=== PATIENT | female | born 1995 | race Caucasian/White ===

== ENCOUNTER 2017-08-09 13:40 | Emergency (ER) | payer OTHER, SELFPAY ==
[2017-08-09 14:52] VITALS: BMI 32.3
[2017-08-09 14:54] LABS: UTC Influenza A Antigen Negative (Negative)
[2017-08-09 14:55] LABS: UTC Influenza B Antigen Negative (Negative)
--- NOTE | 2017-08-09 14:55 | XR_ITS ---
XR chest 2V INDICATION: Cough COMPARISON: PA and lateral chest 02/06/2015 FINDINGS: The cardiovascular structures are unremarkable. No mediastinal shift or hilar mass is evident. The lungs are well expanded and clear bilaterally. The costophrenic sulci are sharp. No significant bony anomalies are apparent. IMPRESSION: Negative chest.
[2017-08-09 15:42] VITALS: BP 104/56; PULSE 66; RESP 18; TEMP 36.4; O2SAT 96; BMI 20.9
--- NOTE | 2017-08-09 16:06 | HMH.EDUTC ---
[facility] [place] Disposition Clinical Impression: Cough Qualifiers: Weeks of gestation: unspecified Qualified Code(s): Z34.90 - Encounter for supervision of normal , unspecified, unspecified trimester Disposition: Home, Self-Care Condition on Discharge: Good Instructions: DI for Cough -- Adult Additional Instructions: Your CXR was clear * Monitor Temp. FU if fever develops. NO ibuprofen while . * humidifier/vaporizer/hot steamy shower * sleep elevated * What you can take while is limited. Robitussin cough and chest congestion is ok. Do not take anything else unless ok'd by your OB, a provider or the pharmacist. Follow up with primary care immediately for new, worsening or persistant symptoms or if no improvement over the next 3 days. Follow up with OB or ER immediately for abdominal pain, leaking or bleeding from your vagina Time of Disposition: 16:11 Medical Decision Making Vital Signs: 08/09/17 15:42 Temperature 97.5 F L Temperature Source Oral Pulse Rate [Right Brachial] 66 Respiratory Rate 18 Blood Pressure [Right Arm] 104/56 Blood Pressure Mean [Right Arm] 72 Blood Pressure Source [Right Arm] Automatic Cuff Blood Pressure Position [Right Arm] Sitting 02 Sat by Pulse Oximetry 96 Oxygen Delivery Method Room Air - Lab Data Lab results reviewed: Yes: I reviewed the patient's lab results. Lab Results 08/09/17 14:53: Influenza Type A Ag Negative, Influenza Type B Ag Negative Orders (Tests/Meds): ORDERS Category Date Time Status Chest XR 2 view (NOT portable) [XR chest 2V] Stat Exams 08/09/17 14:55 Taken - Radiology Data #1 Image(s): Chest Image Reviewed: Yes I reviewed the patient's radiology image, Yes I reviewed the patient's radiology image w/the ED provider no acute findings per KAELYN Boswell Inquiry Pt receiving controlled substance: No [facility] [place] HPI - General Stated complaint: sore throat Time Seen by Provider: 08/09/17 15:55 Mode of Arrival: Ambulatory Source of Information: Patient Limitations: No Limitations Description of Symptoms (Recalled from Triage Doc. by RN): cough and chest discomfort associated with cough HEENT Symptoms (Recalled from RN notes): No Resp Symptoms (Recalled from RN notes): Yes (cough,soa) Skin Symptoms (Recalled from RN notes): No MS Symptoms (Recalled from RN notes): No Functional Status (Recalled from RN notes): wnl - History of Present Illness Provider Complaint: c/o nonproductive dry cough that is causing chest to hurt. Started last night. Adamant she has a cxr despite just finding out she is . triage nurse had already ordered it and it was done before I saw the patient. She doesn't know how far along she is. Guessing 6-8 weeks. Appt w/ OB schedule for later this month. Denies abdominal pain or vaginal leaking or bleeding. Hasn't taken or tried anything for symptoms. Is taking a vitamin. Denies fever, aches, chills. - Related Data Allergies Allergy/AdvReac Type Severity Reaction Status Date / Time Sulfa (Sulfonamide Allergy Mild Unverified 07/14/17 14:56 Antibiotics) [SULFA (SULFONAMIDE ANTIBIOTICS)] - Worker's Comp Is this a Worker's Comp case?: No H History I have reviewed the patient's past medical history: Yes (denies PMHx) Other Surgeries: No: No Previous Surgery - *Social History Educational Level: Completed High School Smoking Status: Current every day smoker Tobacco Type: cigarettes Alcohol Intake: never - Psychiatric History Expresses thoughts of harming self/others: None Suicide Plan Description: No Plan ROS Obtained: Yes Systems reviewed as appropriate & no additional complaints - Constitutional Constitutional: Denies body ache, Denies chills, Denies fatigue, Denies fever(s), Denies poor appetite - Eyes Eyes: Denies eye discharge - ENT Ears, Nose, Mouth, and Throat: Denies difficulty swallowing, Denies otalgia, Denies nasal conge
--- NOTE | 2017-08-09 16:10 | ED_ITS ---
[facility] [place] Disposition Clinical Impression: Cough Qualifiers: Weeks of gestation: unspecified Qualified Code(s): Z34.90 - Encounter for supervision of normal , unspecified, unspecified trimester Disposition: Home, Self-Care Condition on Discharge: Good Instructions: DI for Cough -- Adult Additional Instructions: Your CXR was clear * Monitor Temp. FU if fever develops. NO ibuprofen while . * humidifier/vaporizer/hot steamy shower * sleep elevated * What you can take while is limited. Robitussin cough and chest congestion is ok. Do not take anything else unless ok'd by your OB, a provider or the pharmacist. Follow up with primary care immediately for new, worsening or persistant symptoms or if no improvement over the next 3 days. Follow up with OB or ER immediately for abdominal pain, leaking or bleeding from your vagina Time of Disposition: 16:11 Medical Decision Making Vital Signs: 08/09/17 15:42 Temperature 97.5 F L Temperature Source Oral Pulse Rate [Right Brachial] 66 Respiratory Rate 18 Blood Pressure [Right Arm] 104/56 Blood Pressure Mean [Right Arm] 72 Blood Pressure Source [Right Arm] Automatic Cuff Blood Pressure Position [Right Arm] Sitting 02 Sat by Pulse Oximetry 96 Oxygen Delivery Method Room Air - Lab Data Lab results reviewed: Yes: I reviewed the patient's lab results. Lab Results 08/09/17 14:53: Influenza Type A Ag Negative, Influenza Type B Ag Negative Orders (Tests/Meds): ORDERS Category Date Time Status Chest XR 2 view (NOT portable) [XR chest 2V] Stat Exams 08/09/17 14:55 Taken - Radiology Data #1 Image(s): Chest Image Reviewed: Yes I reviewed the patient's radiology image, Yes I reviewed the patient's radiology image w/the ED provider no acute findings per KAELYN Boswell Inquiry Pt receiving controlled substance: No [facility] [place] HPI - General Stated complaint: sore throat Time Seen by Provider: 08/09/17 15:55 Mode of Arrival: Ambulatory Source of Information: Patient Limitations: No Limitations Description of Symptoms (Recalled from Triage Doc. by RN): cough and chest discomfort associated with cough HEENT Symptoms (Recalled from RN notes): No Resp Symptoms (Recalled from RN notes): Yes (cough,soa) Skin Symptoms (Recalled from RN notes): No MS Symptoms (Recalled from RN notes): No Functional Status (Recalled from RN notes): wnl - History of Present Illness Provider Complaint: c/o nonproductive dry cough that is causing chest to hurt. Started last night. Adamant she has a cxr despite just finding out she is . triage nurse had already ordered it and it was done before I saw the patient. She doesn't know how far along she is. Guessing 6-8 weeks. Appt w/ OB schedule for later this month. Denies abdominal pain or vaginal leaking or bleeding. Hasn't taken or tried anything for symptoms. Is taking a vitamin. Denies fever, aches, chills. - Related Data Allergies Allergy/AdvReac Type Severity Reaction Status Date / Time Sulfa (Sulfonamide Allergy Mild Unverified 07/14/17 14:56 Antibiotics) [SULFA (SULFONAMIDE ANTIBIOTICS)] - Worker's Comp Is this a Worker's Comp case?: No H History I have reviewed the patient's past medical history: Yes (denies PMHx) Other Surgeries: No: No Previous Surg
[2017-08-09 16:17] VITALS: BP 104/56; PULSE 66; RESP 18; TEMP 36.4; O2SAT 96
== END 2017-08-09 16:19 | disposition home or self-care (01) ==
PROVIDERS: Emergency Provider Nurse Practitioner Family; Family Provider Family Medicine
DX: R05 Cough (principal); Z33.1 Pregnant state, incidental; Z88.2 Allergy status to sulfonamides
CPT/HCPCS: 71046; 87804; 99202; 99282

== ENCOUNTER → 2017-08-19 10:29 | Outpatient (CLI) | payer OTHER, SELFPAY ==
[2017-08-19 11:27] LABS: Basophils % 0.2 % (0.1-2.0); Eosinophils # 0.1 K/mm3 (0.0-0.4); Eosinophils % 1.2 % (0.1-12.0); Hematocrit 36.6 % (37.0-47.0); Hemoglobin 12.9 g/dL (12.2-16.2); Lymphocytes # 1.4 K/mm3 (0.7-4.5); Lymphocytes % 15.9 K/mm3 (10-50); Mean Corpuscular HGB Conc 35.2 g/dL (31.8-35.4); Mean Corpuscular Hemoglobin 32.7 pg (27.0-31.2); Mean Corpuscular Volume 92.7 fl (81-99); Mean Platelet Volume 7.5 fl (7.4-10.4); Monocytes # 0.6 K/mm3 (0.1-1.0); Monocytes % 7.1 % (1.7-9.3); Neutrophils # 6.6 K/mm3 (1.8-7.8); Neutrophils % 75.5 % (37.0-80.0); Platelet Count 403 K/mm3 (142-424); Red Blood Count 3.94 M/mm3 (4.20-5.40); Red Cell Distribution Width 11.8 % (11.5-17.5); White Blood Count 8.8 K/mm3 (4.8-10.8)
[2017-08-20 08:52] LABS: HIV Screen 4th Generation wRfx Non Reactive (Non Reactive)
[2017-08-20 09:19] LABS: Rapid Plasma Reagin Ab Titer Non Reactive (NonRea<1:1)
[2017-08-21 18:20] LABS: Hepatitis B Surface Antigen Negative (Negative); Hepatitis C Antibody 0.2 s/co ratio (0.0-0.9)
== END ==
PROVIDERS: PCP Family Medicine; Visit Provider Nurse Practitioner Obstetrics & Gynecology
DX: Z3A.01 Less than 8 weeks gestation of pregnancy (principal)
CPT/HCPCS: 36415; 85025; 86592; 86703; 86762; 86850; 87340; 87380; G0432

== ENCOUNTER → 2017-08-26 12:42 | Outpatient (CLI) | payer OTHER, SELFPAY ==
--- NOTE | 2017-08-26 12:44 | US_ITS ---
US OB transvaginal HISTORY: Evaluate for gestational age and viability ITS.REASON: [id number] FOR DATES ORDERING PHYSICIAN: Ben Pacheco MD PATIENT AGE: 22 years COMPARISON: None FINDINGS: An intrauterine gestational sac is present with a pole with a crown-rump length of 1.67cm correlating to gestational age of 8w1d. heart tones are present with an FHR of 144 bpm's. Yolk sac is noted. The amnion and chorion have not yet fused. Adnexa: 1.8 cm right ovarian cyst likely corpus luteum. Unremarkable left ovary. IMPRESSION: Live intrauterine gestation at 8 weeks 1 day with an estimated due date of 04/06/2018
== END ==
PROVIDERS: Family Provider Family Medicine; PCP Family Medicine; Visit Provider Nurse Practitioner Obstetrics & Gynecology
DX: O26.841 Uterine size-date discrepancy, first trimester (principal)
CPT/HCPCS: 76830

== ENCOUNTER 2017-10-09 14:04 | Emergency (ER) | payer OTHER, SELFPAY ==
--- NOTE | 2017-10-09 14:22 | PC.NURSE ---
Triage nurse alerted me to patient's CC. Went and spoke to patient. Lower abdominal pain starting last night. has progressed. 14 weeks w/o vaginal leaking or bleeding. No fever or V/D. Discussed possible differentials and [facility] guidelines. Pt agreeable to transfer to ER. Report called to Bushra RN working in ER. Assisted to ER by Jesica into bed 11.
[2017-10-09 14:42] VITALS: BP 126/49; PULSE 95; RESP 20; TEMP 36.8; O2SAT 98; BMI 22.2
--- NOTE | 2017-10-09 14:56 | HMH.EDPREG ---
ED Disposition Clinical Impression: Abdominal pain, Abdominal pain affecting Disposition: Home, Self-Care Condition on Discharge: Good Instructions: DI for Acute Abdomen Referrals: Ben Pacheco MD [Primary Care Provider] - - Critical Care Critical Care Time: No Attestation: On 10/09/17, the high probability of a clinically significant, sudden or life threatening deterioration of the following system(s) required my full and direct attention, intervention and personal management. The time I documented below is in addition to time spent performing reported procedures but includes the following listed in this critical care notation. Medical Decision Making - Vega Inquiry Pt receiving controlled substance: No Vega was queried for this patient: No Vital Signs: 10/09/17 14:42 Temperature 98.2 F Temperature Source Oral Pulse Rate [Right Brachial] 95 H Respiratory Rate 20 Blood Pressure [Right Arm] 126/49 Blood Pressure Mean [Right Arm] 74 Blood Pressure Source [Right Arm] Automatic Cuff Blood Pressure Position [Right Arm] Sitting 02 Sat by Pulse Oximetry 98 Oxygen Delivery Method Room Air - Lab Data Lab Results 10/09/17 15:00: Urine Color Yellow, Urine Appearance Sl cloudy, Urine pH 7.5, Ur Specific [place] 1.015, Urine Protein Negative, Urine Glucose (UA) Negative, Urine Ketones Negative, Urine Blood Negative, Urine Nitrate Negative, Urine Bilirubin Negative, Urine Urobilinogen 0.2, Ur Leukocyte Esterase Trace, Urine RBC None, Urine WBC Occasional, Ur Squamous Epith Cells Occasional, Urine Bacteria Trace Orders (Tests/Meds): ORDERS Category Date Time Status US OB >= 14 weeks Fetus Stat Ultrasound 10/09/17 14:59 Taken HPI - General Chief complaint: Abdominal Pain Stated complaint: approx 14 weeks ,abd pain Time Seen by Provider: 10/09/17 14:30 Mode of Arrival: Ambulatory Limitations: No Limitations Description of Symptoms (Recalled from ER Triage Doc. by RN): sharp pains and cramps in lower abdomen that started last night - History of Present Illness Complaint: abdominal pain Onset (ago): hour(s) (18) Consistency: constant Location: pelvis, abdomen Severity: moderate Quality: stabbing Radiation: pelvis Relieving factors: none Exacerbating factors: none Associated symptoms: denies other symptoms Vaginal discharge: none Vaginal bleeding: none : yes Date of Last Menstrual Period: 06/30/2017 OB History - Current : no complications OB History - Previous Pregnancies: no complications - Related Data Home Medications Medication Instructions Recorded Confirmed Vit No.124/Iron/FA 1 each PO DAILY 10/09/17 10/09/17 [ Vitamin Tablet] Allergies Allergy/AdvReac Type Severity Reaction Status Date / Time Sulfa (Sulfonamide Allergy Mild Verified 09/22/17 11:21 Antibiotics) [SULFA (SULFONAMIDE ANTIBIOTICS)] [facility] History I have reviewed the patient's past medical history: Yes Medical History: Reports:: Anxiety Denies:: Cancer, Diabetes Mellitus Type 1, Diabetes Mellitus Type 2, MRSA Other Medical History: Reports: Anemia, Sinus Problems Other Surgeries: Yes: No Previous Surgery Amputation: No Fractures: No Comment: wisdom teeth - Social History Educational Level: Attended High School Smoking Status: Current every day smoker Tobacco Type: cigarettes # Packs/Day (cigarettes): 10 Alcohol Intake: never Substance Use Type: denies use - Psychiatric History Expresses thoughts of harming self/others: None Suicide Plan Description: No Plan Pschychiatric History:: Reports:: Anxiety Family Hx:: No significant family history, Hypertension, Diabetes ROS Obtained: Yes All systems reviewed & no additional complaints - Gastrointestinal Gastrointestingal: Reports: as per HPI - Genitourinary Female Genitourinary: Denies urinary frequency, Denies vaginal discharge, Reports vaginal dryness, Denies
--- NOTE | 2017-10-09 14:59 | US_ITS ---
US OB >= 14 weeks Fetus COMPARISON: Ultrasound 08/26/2017 HISTORY: Abdominal cramping, no spotting TECHNIQUE: Transvaginal imaging FINDINGS: The cervix is 3.83 cm in length and closed. The fetus is in cephalic presentation at this time. The heart rate is 150 bpm. There is a normal amount amniotic fluid. The placenta is anterior and fundal. Measurements reveal the BPD to be 2.64 cm equaling 14 weeks 5 days and the OFD 3.58 cm equaling 14 weeks of 5 days. The head circumference is 9.88 cm equaling 14 weeks 5 days and the abdominal circumference is 8.42 cm equaling 14 weeks and 6 days. The femur length is 1.29 cm equaling 13 weeks 6 days. The left ovary is normal in size, right ovary was not definitely visualized. The crown-rump length is 7.81 cm equaling 13 weeks 6 days. No gross abnormality is noted. IMPRESSION: Viable intrauterine gestation estimated age 14 weeks and 3 days
--- NOTE | 2017-10-09 14:59 | ED_ITS ---
ED Disposition Clinical Impression: Abdominal pain, Abdominal pain affecting Disposition: Home, Self-Care Condition on Discharge: Good Instructions: DI for Acute Abdomen Referrals: Ben Pacheco MD [Primary Care Provider] - - Critical Care Critical Care Time: No Attestation: On 10/09/17, the high probability of a clinically significant, sudden or life threatening deterioration of the following system(s) required my full and direct attention, intervention and personal management. The time I documented below is in addition to time spent performing reported procedures but includes the following listed in this critical care notation. Medical Decision Making - Vega Inquiry Pt receiving controlled substance: No Vega was queried for this patient: No Vital Signs: 10/09/17 14:42 Temperature 98.2 F Temperature Source Oral Pulse Rate [Right Brachial] 95 H Respiratory Rate 20 Blood Pressure [Right Arm] 126/49 Blood Pressure Mean [Right Arm] 74 Blood Pressure Source [Right Arm] Automatic Cuff Blood Pressure Position [Right Arm] Sitting 02 Sat by Pulse Oximetry 98 Oxygen Delivery Method Room Air - Lab Data Lab Results 10/09/17 15:00: Urine Color Yellow, Urine Appearance Sl cloudy, Urine pH 7.5, Ur Specific [place] 1.015, Urine Protein Negative, Urine Glucose (UA) Negative, Urine Ketones Negative, Urine Blood Negative, Urine Nitrate Negative, Urine Bilirubin Negative, Urine Urobilinogen 0.2, Ur Leukocyte Esterase Trace, Urine RBC None, Urine WBC Occasional, Ur Squamous Epith Cells Occasional, Urine Bacteria Trace Orders (Tests/Meds): ORDERS Category Date Time Status US OB >= 14 weeks Fetus Stat Ultrasound 10/09/17 14:59 Taken HPI - General Chief complaint: Abdominal Pain Stated complaint: approx 14 weeks ,abd pain Time Seen by Provider: 10/09/17 14:30 Mode of Arrival: Ambulatory Limitations: No Limitations Description of Symptoms (Recalled from ER Triage Doc. by RN): sharp pains and cramps in lower abdomen that started last night - History of Present Illness Complaint: abdominal pain Onset (ago): hour(s) (18) Consistency: constant Location: pelvis, abdomen Severity: moderate Quality: stabbing Radiation: pelvis Relieving factors: none Exacerbating factors: none Associated symptoms: denies other symptoms Vaginal discharge: none Vaginal bleeding: none : yes Date of Last Menstrual Period: 06/30/2017 OB History - Current : no complications OB History - Previous Pregnancies: no complications - Related Data Home Medications Medication Instructions Recorded Confirmed Vit No.124/Iron/FA 1 each PO DAILY 10/09/17 10/09/17 [ Vitamin Tablet] Allergies Allergy/AdvReac Type Severity Reaction Status Date / Time Sulfa (Sulfonamide Allergy Mild Verified 09/22/17 11:21 Antibiotics) [SULFA (SULFONAMIDE ANTIBIOTICS)] [facility] History I have reviewed the patient's past medical history: Yes Medical History: Reports:: Anxiety Denies:: Cancer, Diabetes Mellitus Type 1, Diabetes Mellitus Type 2, MRSA Other Medical History: Reports: Anemia, Sinus Problems Other Surgeries: Yes: No Previous Surgery Amputation: No Fractures: No Comment: wisdom teeth - Social
--- NOTE | 2017-10-09 15:00 | PC.NURSE ---
heart rate 157
[2017-10-09 15:06] LABS: Microscopic,Cath URINE MICROSCOPIC (MICROSCOPIC)
[2017-10-09 15:09] LABS: Appearance,Urine/Cath SL CLOUDY (Clear); Bilirubin,Cath Negative (Negative); Blood, Urine/Cath Negative (Negative); Color,Urine/Cath YELLOW (Yellow); Glucose,Urine/Cath (UA) Negative (Negative); Ketones,Urine/Cath Negative (Negative); Leukocyte Esterase,Cath TRACE (Negative); Nitrate,Cath Negative (Negative); PH,Urine/Cath 7.5 (5.0-8.5); Protein,Urine/Cath Negative (Negative); Specific Gravity, Urine/Cath 1.015 (1.005-1.030); Urobilinogen,Cath 0.2 EU/dl (0.2)
[2017-10-09 15:26] LABS: Amorphous Sediment,Ur/Cath 1+ /lpf; Bacteria,Urine/Cath TRACE /lpf; Squamous Epithelial Ur./Cath Occasional #/hpf (0-5); WBC,Urine/Cath Occasional #/hpf (0-3)
--- NOTE | 2017-10-09 18:35 | PC.NURSE ---
MD WENT TO DISCHARGE PT AND WAS NOT IN ROOM. CHECKED LOBBY AND OUTSIDE AND UNABLE TO FIND PT. PT WALKED OUT WITHOUT BEING DISCHARGED. UNABLE TO OBTAIN DISCHARGE VITALS OR EDUCATED. PT DID NOT INFORM STAFF OF LEAVING.
[2017-10-09 18:53] VITALS: BP 000/00; PULSE 0; RESP 0; TEMP -17.7; TEMP 0; O2SAT 0
== END 2017-10-09 19:01 | disposition home or self-care (01) ==
LOC: UTC 14:08 → ER 14:22
PROVIDERS: Emergency Provider Family Medicine; Family Provider Family Medicine; PCP Nurse Practitioner Obstetrics & Gynecology
DX: O26.899 Other specified pregnancy related conditions, unspecified trimester (principal); R10.30 Lower abdominal pain, unspecified; F17.210 Nicotine dependence, cigarettes, uncomplicated
CPT/HCPCS: 76805; 81001; 99281

== ENCOUNTER → 2017-10-20 12:33 | Outpatient (CLI) | payer OTHER, SELFPAY ==
[2017-10-26 10:35] LABS: Insulin Dep Diabetes No
[2017-10-26 10:36] LABS: hCG MoM 0.96
[2017-10-26 10:37] LABS: DSR (Second Trimester) 1 IN 1112; OSBR Risk 1 IN 10000; uE3 MoM 1.37
== END ==
PROVIDERS: Family Provider Family Medicine; PCP Nurse Practitioner Obstetrics & Gynecology; Visit Provider Nurse Practitioner Obstetrics & Gynecology
DX: Z34.90 Encounter for supervision of normal pregnancy, unspecified, unspecified trimester (principal)
CPT/HCPCS: 36415; 82106

== ENCOUNTER → 2017-11-19 10:10 | Outpatient (CLI) | payer OTHER, SELFPAY ==
--- NOTE | 2017-11-19 10:12 | US_ITS ---
US OB /maternal detail: INDICATION: ITS.REASON: 20 wk+ OB Complete US-Anatomy [id number] ORDERING PHYSICIAN: Ben Pacheco MD PATIENT AGE: 22 years TECHNIQUE: ultrasound transabdominal scanning. COMPARISON: No previous relevant studies. FINDINGS: Single viable intrauterine gestation. cephalic position. Placenta: posterior placenta grade 1. There is average amount fluid. The cervix appears satisfactory. Closed and measuring 3 cm in length. Complete survey performed and was unremarkable on the submitted images as in PACS. No discrete anomalies identified on survey imaging by technologist. Active fetus. Three-vessel cord with satisfactory umbilical cord insertion. 4- chamber heart noted. Survey of brain & ventricles somewhat difficult secondary to low position. No obvious anomalies. Face and neck survey unremarkable. Diaphragm and chest views unremarkable. Abdomen: Both kidneys noted and unremarkable. Stomach noted and satisfactory. Spine: Survey of the spine satisfactory with no anomalies identified nor imaged. Both arms and legs noted. Amniotic Fluid: Adequate. Maternal adnexa: No significant findings. Measurements: Average ultrasound age 20w1d. Gestational Age 20w2d. Estimated due date by ultrasound age 0904/07/2018. Estimated weight 334 grams.. This is 37th percentile BPD = 20w3d OFD = 20w2d HC = 19w4d AC = 20w3d FL = 20w0d Heart Rate = 144 Cerebellum = 20w5d Humerus = 20w2d HC/AC is 1.12 (1.09-1.26. CI is 80% (70-86%). FL/BPD is 68%. FL/AC is 21%. IMPRESSION: There is a single live fetus which is in the cephalic presentation with an average ultrasound age of 20 weeks and 1 day. Estimated due date is 04/07/2018 No obvious anomalies are evident. The fetus had somewhat difficult to evaluate secondary to the low position. Posterior grade 1 placenta without previa or abruption with average amniotic fluid
== END ==
PROVIDERS: Family Provider Family Medicine; PCP Nurse Practitioner Obstetrics & Gynecology; Visit Provider Nurse Practitioner Obstetrics & Gynecology
DX: Z36.0 Encounter for antenatal screening for chromosomal anomalies (principal)
CPT/HCPCS: 76811

== ENCOUNTER 2017-12-05 03:32 | Outpatient (CLI) | payer OTHER, SELFPAY ==
[2017-12-05 03:45] VITALS: BP 105/62; PULSE 99; RESP 16; TEMP 37.1; O2SAT 100; BMI 23.8
[2017-12-05 03:49] VITALS: BMI 23.8
[2017-12-05 04:07] LABS: Appearance,Urine SL CLOUDY (Clear); Blood, Urine Negative (Negative); Color,Urine YELLOW (Yellow); Glucose,Urine (UA) Negative (Negative); Ketones,Urine TRACE (Negative); Leukocyte Esterase,Urine TRACE (Negative); Microscopic, Urine URINE MICROSCOPIC (MICROSCOPIC); Nitrate,Urine Negative (Negative); Protein,Urine 1+ (Negative)
[2017-12-05 04:10] LABS: Amorphous Sediment,Urine 1+ /lpf; Bilirubin,Urine Negative (Negative); Mucus,Urine 4+ /lpf; Squamous Epithelial Cell,Urine 20-50 #/hpf (0-5)
== END 2017-12-05 05:40 | disposition home or self-care (01) ==
LOC: OBOUT 03:33 → OB 03:36
PROVIDERS: Obstetrics & Gynecology; Family Provider Family Medicine; PCP Family Medicine; Visit Provider Nurse Practitioner Obstetrics & Gynecology
DX: O21.2 Late vomiting of pregnancy (principal); Z3A.22 22 weeks gestation of pregnancy; R19.7 Diarrhea, unspecified
CPT/HCPCS: 59025; 81001; 96360; J2405

== ENCOUNTER 2018-01-25 20:01 | Outpatient (CLI) | payer OTHER, SELFPAY ==
[2018-01-25 20:14] VITALS: BMI 24.2
[2018-01-25 20:20] VITALS: BP 110/59; PULSE 93; RESP 16; TEMP 36.9; O2SAT 98; BMI 24.2
[2018-01-25 20:24] LABS: Microscopic, Urine URINE MICROSCOPIC (MICROSCOPIC)
[2018-01-25 20:37] LABS: Appearance,Urine CLEAR (Clear); Bilirubin,Urine Negative (Negative); Blood, Urine Negative (Negative); Color,Urine YELLOW (Yellow); Glucose,Urine (UA) Negative (Negative); Ketones,Urine Negative (Negative); Leukocyte Esterase,Urine 1+ (Negative); Nitrate,Urine Negative (Negative); PH,Urine 7.5 (5.0-8.5); Protein,Urine Negative (Negative); Urobilinogen,Urine 0.2 EU/dl (0.2)
[2018-01-25 20:51] LABS: Bacteria,Urine 1+ /lpf
== END 2018-01-25 21:10 | disposition home or self-care (01) ==
LOC: OBOUT 20:02 → OB 20:07
PROVIDERS: Referring Provider Nurse Practitioner Obstetrics & Gynecology; Visit Provider Obstetrics & Gynecology
DX: O36.8130 Decreased fetal movements, third trimester, not applicable or unspecified (principal); Z3A.29 29 weeks gestation of pregnancy
CPT/HCPCS: 59025; 81001; 87086

== ENCOUNTER → 2018-03-03 17:02 | Outpatient (REF) | payer OTHER, SELFPAY | LOC: LAB 17:02 | PROVIDERS: Visit Provider Nurse Practitioner Obstetrics & Gynecology | DX: Z34.90 Encounter for supervision of normal pregnancy, unspecified, unspecified trimester (principal) | CPT/HCPCS: 86403 ==

== ENCOUNTER 2018-03-03 23:55 | Outpatient (CLI) | payer OTHER, SELFPAY ==
[2018-03-04 00:13] VITALS: BMI 25.4
[2018-03-04 00:24] VITALS: BP 122/78; PULSE 76; RESP 18; TEMP 36.8; O2SAT 98; BMI 25.4
[2018-03-04 00:34] LABS: Microscopic, Urine URINE MICROSCOPIC (MICROSCOPIC)
[2018-03-04 00:37] LABS: Appearance,Urine CLEAR (Clear); Bilirubin,Urine Negative (Negative); Blood, Urine TRACE-L (Negative); Color,Urine YELLOW (Yellow); Glucose,Urine (UA) Negative (Negative); Ketones,Urine Negative (Negative); Leukocyte Esterase,Urine 2+ (Negative); Nitrate,Urine Negative (Negative); PH,Urine 7.5 (5.0-8.5); Protein,Urine Negative (Negative); Urobilinogen,Urine 0.2 EU/dl (0.2)
[2018-03-04 00:44] LABS: Amorphous Sediment,Urine 1+ /lpf; Bacteria,Urine 1+ /lpf
[2018-03-04 00:56] LABS: Amphetamine/Metha Screen,Urine Negative ng/mL (<1000); Barbiturates Screen,Urine Negative ng/mL (<200); Benzodiazepines Screen,Urine Negative ng/mL (<200); Cannabinoid Screen,Urine Negative ng/mL (<50); Cocaine Screen,Urine Negative ng/mL (<300); Methadone Screen,Urine Negative ng/mL (<300); Opiate Screen,Urine Negative ng/mL (<300); Phencyclidine Screen,Urine Negative ng/mL (<25)
== END 2018-03-04 01:20 | disposition home or self-care (01) ==
LOC: OBOUT 03-04 00:07 → OB 03-04 00:09
PROVIDERS: Visit Provider Nurse Practitioner Obstetrics & Gynecology
DX: O47.03 False labor before 37 completed weeks of gestation, third trimester (principal); Z3A.35 35 weeks gestation of pregnancy
CPT/HCPCS: 59025; 80305; 81001; 87086

== ENCOUNTER 2018-03-30 05:26 | Inpatient (IN) ==
[2018-03-30 06:03] LABS: Basophils % 0.4 % (0.1-2.0); Eosinophils # 0.4 K/mm3 (0.0-0.4); Hematocrit 34.7 % (37.0-47.0); Hemoglobin 11.5 g/dL (12.2-16.2); Lymphocytes # 1.6 K/mm3 (0.7-4.5); Mean Corpuscular HGB Conc 33.2 g/dL (31.8-35.4); Mean Corpuscular Hemoglobin 32.1 pg (27.0-31.2); Mean Corpuscular Volume 96.6 fl (81-99); Mean Platelet Volume 7.9 fl (7.4-10.4); Monocytes # 0.6 K/mm3 (0.1-1.0); Monocytes % 6.5 % (1.7-9.3); Neutrophils # 6.3 K/mm3 (1.8-7.8); Neutrophils % 71.2 % (37.0-80.0); Platelet Count 262 K/mm3 (142-424); Red Blood Count 3.59 M/mm3 (4.20-5.40); Red Cell Distribution Width 13.3 % (11.5-17.5); White Blood Count 8.9 K/mm3 (4.8-10.8)
[2018-03-30 06:08] LABS: Anion Gap 16.4 mEq/L (5-15); Calcium 8.8 mg/dL (8.5-10.1); Potassium 3.4 mmoL/L (3.5-5.1)
--- NOTE | 2018-03-30 07:13 | Progress Note ---
[facility] Anesthesia Checklist - Patient Identification Patient Identification: Arm Band, Verbal (Name & ) - Structural Data Admitted From: Inpatient Planned Operative Procedure/s: c section Consent for Planned Operative Procedure(s) Verified: Yes Verified Documents: Surgical Consent, History and Physical - NPO Status Verified Time NPO: 00:00 - Additional verifications Patient : Yes Anesthesia Reactions: No Hx Blood Transfusions: No Blood Transfusion Reaction: No Cephalosporin Allergy: No Previous Colonoscopy: No - Cardiovascular Assessment Heart Sounds: S1 & S2 Pulse Strength: Baseline Pulse Rhythm: Regular Peripheral Edema: No - Airway Assessment C-Spine Mobility Assessed: Yes TMJ Mobility Assessed: Yes Dentition: Good Dentition - Neurological Assessment Level of Consciousness: Awake, Alert, Appropriate Hx Seizures: No Numbness or tingling in extremities: No - Anesthesia Plan Anesthesia Risk discussed: Yes Anesthesia Plan: Verified ASA Class: II Anesthesia Type: Spinal [facility] History I have reviewed the patient's past medical history: Yes Medical History: Reports:: Anxiety Denies:: Cancer, Diabetes Mellitus Type 1, Diabetes Mellitus Type 2, MRSA Other Medical History: Reports: Anemia, Sinus Problems Other Surgeries: Yes: No Previous Surgery. No: Amputation: No Fractures: No - *Social History Smoking Status: Current every day smoker Tobacco Type: cigarettes # Packs/Day (cigarettes): 1 #Yrs smoked (if former smoker): 5 Alcohol Intake: never Substance Use Type: denies use Occupational Status: unemployed Housing: apartment Household Members: significant other - Psychiatric History Suicide Plan Description: No Plan Pschychiatric History:: Reports:: Anxiety *Family Hx:: No significant family history, Hypertension, Diabetes Para: 0
--- NOTE | 2018-03-30 07:28 | History & Physical Report ---
OB - H&P: HPI Antepartum - History of Present Illness Chief complaint: Term , breech presentation History of present illness: She is a 22-year-old 1 para 0 at 39 weeks gestational age who has breech presentation. As result of that she is offered primary lower segment transverse section. - History of Present Criteria for establishing EDC:: LMP confirmed by 1st trimester US care: good care Ultrasounds: normal 1st trimester US, normal mid trimester US Obstetrical complications: malpresentation Medical complications: none - Labs Blood type: A (+) positive [facility] History I have reviewed the patient's past medical history: Yes Medical History: Reports:: Anxiety Denies:: Cancer, Diabetes Mellitus Type 1, Diabetes Mellitus Type 2, MRSA, Seizures Other Medical History: Reports: Anemia, Sinus Problems. Denies: Blood Transfusion Reaction Other Surgeries: Yes: No Previous Surgery. No: Amputation: No Fractures: No - *Social History Smoking Status: Current every day smoker Tobacco Type: cigarettes # Packs/Day (cigarettes): 1 #Yrs smoked (if former smoker): 5 Alcohol Intake: never Substance Use Type: denies use Occupational Status: unemployed Housing: apartment Household Members: significant other - Psychiatric History Suicide Plan Description: No Plan Pschychiatric History:: Reports:: Anxiety *Family Hx:: No significant family history, Hypertension, Diabetes Para: 0 Review of Systems - Review of Systems Review of systems:: pertinent systems reviewed and negative unless documented below Meds Home Medications Medication Instructions Recorded Confirmed Type Vit No.124/Iron/FA 1 each PO DAILY 10/09/17 03/29/18 History [ Vitamin Tablet] Ferrous Sulfate 325 mg PO DAILY 12/05/17 03/29/18 History cephALEXin [Keflex 500mg Cap] 500 mg PO TID 03/29/18 03/29/18 History Allergies Allergy/AdvReac Type Severity Reaction Status Date / Time Sulfa (Sulfonamide Allergy Mild Verified 03/23/18 13:57 Antibiotics) [SULFA (SULFONAMIDE ANTIBIOTICS)] OB - H&P: Exam - Physical Exam Vital signs: Temp Pulse Resp BP Pulse Ox 98.1 F 79 17 120/72 97 03/30/18 06:06 03/30/18 06:06 03/30/18 06:06 03/30/18 06:06 03/30/18 06:06 - Constitutional no acute distress - Routine HEENT Exam Head: Present: normocephalic Eye: Present: EOMI, PERRL ENT: Present: mucous membranes moist - Routine Neck Exam Present: supple, full ROM - Routine Respiratory Exam Absent: accessory muscle use (good air entry bilaterally), respiratory distress, wheezes, crackles - Routine Cardiovascular Exam Present: RRR. Absent: murmur - Routine Abdominal Exam Present: soft, normoactive bowel sounds. Absent: tenderness, distended, guarding - Routine Rectal Exam Patient deferred: visual exam, digital exam - Routine Exam Patient deferred: external exam, groin exam, perineal exam - Routine Extremities Exam Present: full ROM. Absent: cyanosis, edema - Routine Skin Exam Present: intact. Absent: cyanosis - Routine Neurological Exam Present: alert, oriented X3 - Routine Psychiatric Exam Present: normal affect OB - Results - Labs Labs: Short CBC 03/30/18 Range/Units 05:50 WBC 8.9 (4.8-10.8) K/mm3 Hgb 11.5 L (12.2-16.2) g/dL Hct 34.7 L (37.0-47.0) % Plt Count 262 (142-424) K/mm3 BMP 03/30/18 05:50 Sodium 141 Potassium 3.4 L Chloride 106 Carbon Dioxide 22 BUN 4 L Creatinine 0.61 Glucose 90 Calcium 8.8 OB - A/P Antepartum (1) Acute bronchitis Current visit: No Status: Acute (2) Breech presentation Current visit: No Status: Acute - Additional Plan Planning to breastfeed?: Yes Plan: other Additional Information:: Her baby is in the breech presentation so we will offer her primary lower segment transverse section.
--- NOTE | 2018-03-30 08:26 | Operative Note ---
Date of procedure: 03/30/18 Pre-op Diagnosis:: Term , breech presentation Post-op Diagnosis:: Term , breech presentation Procedure performed:: Primary lower segment transverse section Surgeon:: Ben Pacheco MD Fish Dressing Machine Feeder(s):: Nuvia Parnell SUPERVISOR DYER:: Tex Davila Anesthesia: spinal Estimated blood loss (mL): 600 Clinical Note:: She is a 22-year-old 1 para 0 who is 39 weeks gestational age. She is known to be a breech presentation and as result of that was offered primary lower segment transverse section at term. Operative findings:: She delivered a liveborn female child at 7:55 AM on the morning of March 30, 2018. Ovaries and tubes appeared normal. Apgars were 9 at 1 and 10 at 5 minutes. Baby was in the matt breech presentation. Operative note:: She was taken to the operating room where spinal anesthesia was found be adequate. She was prepped and draped in normal sterile fashion in the supine position with a leftward tilt. A Cooper catheter was in the bladder. A Pfannenstiel skin incision was made with knife then carried through to the underlying layer of fascia with cautery. The fascia was opened in the midline with cautery and extended laterally using Mcmillan scissors. Animas clamps were applied to the superior aspect of the fascial incision which was tented up and the underlying rectus muscles dissected off using cautery. The Animas clamps were then applied to the inferior aspect of the fascial incision which in a similar fashion was tented up and the underlying rectus muscles dissected off using cautery. The rectus muscles were then in the midline, the peritoneum identified, and entered sharply with Metzenbaum scissors. This incision was then extended superiorly and inferiorly with cautery. We had good visualization of the bladder inferiorly. The bladder peritoneum was then opened in the midline and extended laterally using Metzenbaum scissors. A bladder flap was created digitally. The lower blade of the [place] was inserted so as to push the bladder out of the way. Transverse incision was made through the uterine muscle to the amnion. This incision was then extended laterally using fingers traction. The amnion was entered sharply with knife. There was clear amniotic fluid. The infant's breech was then delivered atraumatically. This was followed by the anterior shoulder and the rest of the infant's body atraumatically. There was a loose nuchal cord which was easily reduced. The oropharynx and nasopharynx were bulb suctioned. The was then handed off to Dr. Robles who assigned Apgars of 9 at 1 minute and 10 at 5 minutes. We then obtained cord blood as well as cord pH. Using gentle traction on the cord and countertraction on the fundus I was able to easily deliver the placenta intact. It had a normal three-vessel cord. The uterus was then cleared of clots and debris and exteriorized from the abdominal cavity. The uterine incision was then closed using running 0 Vicryl suture in a locked fashion. A second layer of the same suture was used to imbricate the first layer. The bladder peritoneum was then closed using running 2-0 Vicryl suture in a locked fashion. The gutters and cul-de-sac were then cleared of clots and debris and the uterus was returned the abdominal cavity. Once again hemostasis was assured. The peritoneum was grasped with Mel clamps and closed using running 2-0 Vicryl suture. The rectus muscles were then reapproximated using running 0 Vicryl suture. The fascia was closed using running #1 Vicryl suture. The subcutaneous tissues were then irrigated with warm water followed by closure Niraj's fascia using running 2-0 Monocryl suture. The skin was closed with jair. The skin was then cleaned with Hibiclens. Sterile dressings were applied. She tolerated the procedure well and was taken to the recovery room in excellent condition. All sponges minute and needle counts were correct. Estimate a blood loss was approximately 600 mL. Condition: stable Disposition: PACU Specimens:: Products of conception Complications:: None
--- NOTE | 2018-03-30 08:38 | Progress Note ---
[facility] Anesthesia Record Part I Intake, IV Amount: 1,550 Estimated blood loss (mL): 600 Urine output (mL): 200 Blood Products used (#): none Blood Pressure: 124/73 SaO2: 97 Pulse Rate: 70 Respiratory Rate: 22 Temperature: 97.2 F Patient is:: Awake, Stable Stable to PACU at:: 08:36
--- NOTE | 2018-03-30 08:39 | Progress Note ---
[facility] Anesthesia Record Part II Discharge Time: 09:06 Destination: Obstetric PACU nurse assessment reviewed?: Yes Patient Condition:: Good Anesthesia Complications:: None
--- NOTE | 2018-03-30 10:35 | Pharmacy Consult Notes ---
[facility] Pharmacy VTE Monitoring - Patient Demographics Admission date: 03/30/18 Report Date: 03/30/18 Time: 10:34 Allergies/Adverse Reactions: Patient Allergies Sulfa (Sulfonamide Antibiotics) [SULFA (SULFONAMIDE ANTIBIOTICS)] Allergy (Mild, Verified 03/23/18 13:57) Height: 1.6 m Weight: 71.214 kg - VTE Risk Labs: VTE Related Lab Results Hgb 11.5 g/dL (12.2-16.2) L 03/30/18 05:50 Hct 34.7 % (37.0-47.0) L 03/30/18 05:50 Plt Count 262 K/mm3 (142-424) 03/30/18 05:50 BUN 4 mg/dL (7-18) L 03/30/18 05:50 Creatinine 0.61 mg/dL (0.55-1.02) 03/30/18 05:50 Estimated Creat Clear 161 mL/min (0-300) 03/30/18 05:50 - Prophylaxis VTE Prophylaxis Ordered?: Yes Types of VTE Prophylaxis: IPCS Knee High Location of Applied Device: Bilateral Lower Extremeties
[2018-03-30 16:19] LABS: Hematocrit 30.6 % (37.0-47.0)
[2018-03-30 16:26] LABS: Hemoglobin 10.2 g/dL (12.2-16.2)
[2018-03-31 05:50] LABS: Basophils % 0.2 % (0.1-2.0); Eosinophils # 0.2 K/mm3 (0.0-0.4); Eosinophils % 3.3 % (0.1-12.0); Lymphocytes # 1.3 K/mm3 (0.7-4.5); Lymphocytes % 18.4 K/mm3 (10-50); Mean Corpuscular HGB Conc 33.8 g/dL (31.8-35.4); Mean Corpuscular Hemoglobin 33.3 pg (27.0-31.2); Mean Corpuscular Volume 98.8 fl (81-99); Mean Platelet Volume 7.9 fl (7.4-10.4); Monocytes # 0.5 K/mm3 (0.1-1.0); Monocytes % 7.5 % (1.7-9.3); Neutrophils % 70.5 % (37.0-80.0); Platelet Count 220 K/mm3 (142-424); Red Blood Count 2.73 M/mm3 (4.20-5.40); Red Cell Distribution Width 13.4 % (11.5-17.5)
[2018-03-31 07:17] LABS: Hemoglobin 9.1 g/dL (12.2-16.2)
--- NOTE | 2018-03-31 17:40 | Progress Note ---
Internal Medicine - PN: Subj *Date: 03/31/18 *Time: 12:25 Interval history: POD #1 primary CS for breech presentation No new complaints Ambulating and tolerating regular diet Voiding without difficulty Lochia appropriate Good pain control Exam Vital signs and Labs for Last 24 Hours: Temp Pulse Resp BP Pulse Ox 97.3 F L 64 18 120/69 99 03/30/18 09:06 03/30/18 09:06 03/30/18 18:19 03/30/18 09:06 03/30/18 09:06 Laboratory Results - last 24 hr 03/31/18 05:22: WBC 7.0, RBC 2.73 L, Hgb 9.1 L D, Hct 27.0 L, MCV 98.8, MCH 33.3 H, MCHC 33.8, RDW 13.4, Plt Count 220, MPV 7.9, Neut % (Auto) 70.5, Lymph % (Auto) 18.4, [place] % (Auto) 7.5, Eos % (Auto) 3.3, Baso % (Auto) 0.2, Neut # (Auto) 5.0, Lymph # (Auto) 1.3, [place] # (Auto) 0.5, Eos # (Auto) 0.2, Baso # (Auto) 0.0 I & O for Last 24 hours: Intake & Output 03/29/18 03/30/18 03/31/18 04/01/18 11:59 11:59 11:59 11:59 Intake Total 1700 / 1700 Output Total 500 / 500 Balance 1200 / 1200 Weight 157 lb - Constitutional no acute distress - *Routine Respiratory Exam Absent: respiratory distress - *Routine Cardiovascular Exam Absent: tachycardia - *Routine Abdominal Exam Present: soft, tenderness (appropriate for postop status), wound (pfannenstiel incision intact with jair). Absent: distended, rebound - *Routine Extremities Exam Present: edema (1+) - *Routine Skin Exam Present: wounds (no drainage, bleeding, erythema or induration) - *Routine Neurological Exam Present: alert, oriented X3 - Routine Psychiatric Exam Absent: depressed, anxious Assessment and Plan (1) Acute bronchitis Current visit: No Status: Acute Qualifiers: Bronchitis organism: unspecified organism Qualified Code(s): J20.9 - Acute bronchitis, unspecified Category: Medical Code(s): J20.9 - Acute bronchitis, unspecified (2) Breech presentation Current visit: No Status: Acute Qualifiers: Fetus number: single or unspecified fetus Qualified Code(s): O32.1XX0 - Maternal care for breech presentation, not applicable or unspecified Category: Medical Code(s): O32.1XX0 - Maternal care for breech presentation, not applicable or unspecified (3) Delivery by elective section Current visit: Yes Status: Acute Category: Medical Code(s): O82 - Encounter for delivery without indication (4) Anemia due to acute blood loss Current visit: Yes Status: Acute Category: Medical Code(s): D62 - Acute posthemorrhagic anemia - Assessment and plan all Dx Assessment and Plan for all problems:: Routine postop care FeSO4 supplementation with PNV for postop anemia Anticipate discharge home POD #2-3
--- NOTE | 2018-04-02 14:04 | Progress Note ---
Internal Medicine - PN: Subj *Date: 04/01/18 *Time: 13:57 Interval history: POD #2 primary CS no new complaints Ambulating, voiding and bart reg diet normal lochia Exam Vital signs and Labs for Last 24 Hours: Temp Pulse Resp BP Pulse Ox 97.6 F 64 18 111/74 98 04/02/18 08:00 04/02/18 08:00 04/02/18 08:00 04/02/18 08:00 04/02/18 08:00 - Constitutional no acute distress - *Routine Respiratory Exam Absent: respiratory distress - *Routine Abdominal Exam Present: soft. Absent: tenderness, distended - *Routine Skin Exam Present: wounds (incision dry/intact) - Routine Psychiatric Exam Present: normal affect. Absent: depressed, anxious Assessment and Plan (1) Acute bronchitis Current visit: No Status: Acute Qualifiers: Bronchitis organism: unspecified organism Qualified Code(s): J20.9 - Acute bronchitis, unspecified Category: Medical Code(s): J20.9 - Acute bronchitis, unspecified (2) Breech presentation Current visit: No Status: Acute Qualifiers: Fetus number: single or unspecified fetus Qualified Code(s): O32.1XX0 - Maternal care for breech presentation, not applicable or unspecified Category: Medical Code(s): O32.1XX0 - Maternal care for breech presentation, not applicable or unspecified (3) Delivery by elective section Current visit: Yes Status: Acute Category: Medical Code(s): O82 - Encounter for delivery without indication (4) Anemia due to acute blood loss Current visit: Yes Status: Acute Category: Medical Code(s): D62 - Acute posthemorrhagic anemia - Assessment and plan all Dx Assessment and Plan for all problems:: routine postop care anticipate discharge tomorrow
--- NOTE | 2018-04-02 14:25 | Discharge Summary ---
DS: Providers Date of admission: 03/30/18 05:26 Primary care physician: Harjinder Robles MD Admitting clinician: Ben Wheeler Discharging clinician: Pepper Baez DS: Diagnosis - Discharge Diagnosis (1) Acute bronchitis Status: Acute (2) Breech presentation Status: Acute (3) Delivery by elective section Status: Acute (4) Anemia due to acute blood loss Status: Acute DS: Medications - Discharge Medications Prescriptions: New Oxycodone HCl [OxyIR 5mg tablet] 5 mg PO Q6 PRN #30 tab PRN Reason: Moderate Pain Ketorolac Tromethamine [Toradol 10mg tablet] 10 mg PO Q6H PRN #30 tablet PRN Reason: Mild Pain Continue Vit No.124/Iron/FA [ Vitamin Tablet] 1 each PO DAILY Ferrous Sulfate 325 mg PO DAILY Discontinued cephALEXin [Keflex 500mg Cap] 500 mg PO TID OB - DS: Summary Hospital course: Ms. Recio is a 22 year old female - Peripartum Data Procedures: Procedures Operation Date: 03/30/18 07:30 Actual Procedures Side Surgeon p C Section/ primary Not Applicable Ben Wheeler MD - Time Spent with Patient Total time spent providing and/or coordinating discharge services: - Quality: VTE Documentation of Mechanical Device: SCDs/IPCs Objective Vital signs: Temp Pulse Resp BP Pulse Ox 97.6 F 64 18 111/74 98 04/02/18 08:00 04/02/18 08:00 04/02/18 08:00 04/02/18 08:00 04/02/18 08:00 Discharge Plan - Patient Discharge Instructions Additional Instructions: FOLLOW-UP WITH DR. WHEELER ON 04/13/2018 AT 10:45 NO DRIVING FOR 2 WEEKS NOTHING IN VAGINA FOR 6 WEEKS NO HEAVY LIFTING Patient Instructions: How to Care for a Surgical Wound, [facility] Post Discharge Instructions - Follow up Plan Home Medications: Home Medications Medication Instructions Recorded Confirmed Type Vit No.124/Iron/FA 1 each PO DAILY 10/09/17 03/30/18 History [ Vitamin Tablet] Ferrous Sulfate 325 mg PO DAILY 12/05/17 03/30/18 History cephALEXin [Keflex 500mg Cap] 500 mg PO TID 03/29/18 03/30/18 History Prescriptions/Medication Reconciliation: No Action Vit No.124/Iron/FA [ Vitamin Tablet] 1 each PO DAILY cephALEXin [Keflex 500mg Cap] 500 mg PO TID Ferrous Sulfate 325 mg PO DAILY
== END 2018-04-02 15:20 | disposition home or self-care (01) ==
LOC: OB 05:26
PROVIDERS: ADMIT Nurse Practitioner Obstetrics & Gynecology; ATTEND Nurse Practitioner Obstetrics & Gynecology

== ENCOUNTER 2019-11-17 13:26 | Emergency (ER) | payer OTHER, SELFPAY ==
[2019-11-17 13:39] VITALS: BP 119/81; PULSE 83; RESP 20; TEMP 36.6; O2SAT 100; BMI 20.3
--- NOTE | 2019-11-17 13:46 | HMH.EDUTC ---
[facility] [place] Clinical Impression: Viral upper respiratory illness, Burning with urination Disposition: Home, Self-Care Condition on Discharge: Good Instructions: Common Cold, DI for Viral Upper Respiratory Infection -- Adult Additional Instructions: Make sure that you are drinking plenty of water to help keep kidneys flushed out *Monitor Temp, Over the counter Motrin or Tylenol as directed/as needed Tylenol every 4 hours and Motrin every 6 hours (as long as your family doctor has told you that you can take it) for fever or pain. and straight to ER if unable to lower temp less than 101.0 after medication given *Warm salt water gargles may help to soothe the throat *Throat Lozenges *Warm fluids *Sleep elevated *Humidifier/Vaporizer Your throat swab was sent for culture. Those results are typically sent to your primary care. Be sure to follow up in 2-3 days with your family doctor/primary care physician if no improvement so they can review those result and treat if necessary. If you don?t have a primary care doctor, I recommend you get one but in the mean time, you will have to return to a walk in clinic Follow up IMMEDIATELY for new or worsening symptoms or no Noticeable improvement over the next 48-72 hours. 911 for difficulty breathing or swallowing Referrals: [place] [Primary Care Provider] - As needed Time of Disposition: 14:31 Medical Decision Making - Vega Inquiry Pt receiving controlled substance: No Vega was queried for this patient: No Vital Signs: 11/17/19 13:39 Temperature 97.8 F Temperature Source Oral Pulse Rate [Right Brachial] 83 Respiratory Rate 20 Blood Pressure [Right Arm] 119/81 Blood Pressure Mean [Right Arm] 93 Blood Pressure Source [Right Arm] Automatic Cuff Blood Pressure Position [Right Arm] Sitting 02 Sat by Pulse Oximetry 100 Oxygen Delivery Method Room Air - Lab Data Lab results reviewed: Yes: I reviewed the patient's lab results. Lab Results 11/17/19 13:39: Strep Scn Rapid Clinic Negative 11/17/19 13:39: Urine Color Yellow, Urine Appearance Clear, Urine pH 8.5, Ur Specific [place] 1.015, Urine Protein 1+, Urine Glucose (UA) Negative, Urine Ketones Negative, Urine Blood Negative, Urine Nitrate Negative, Urine Bilirubin Negative, Urine Urobilinogen 1, Ur Leukocyte Esterase Negative Orders (Tests/Meds): ORDERS Category Date Time Status Strep Screen Confirmation Stat Micro 11/17/19 13:39 Received [facility] [place] HPI - General Stated complaint: sore throat Time Seen by Provider: 11/17/19 13:46 Mode of Arrival: Ambulatory Source of Information: Patient Limitations: No Limitations Description of Symptoms (Recalled from Triage Doc. by RN): PATIENT C/O SORE THROAT AND PAIN WITH URINATION HEENT Symptoms (Recalled from RN notes): Yes Resp Symptoms (Recalled from RN notes): No Skin Symptoms (Recalled from RN notes): No MS Symptoms (Recalled from RN notes): No Functional Status (Recalled from RN notes): WNL - History of Present Illness Provider Complaint: Patient states that she wants to get checked for strep throat her throat is sore and feeling scratchy for several days States that also for the last week she has been having burning with urination and feeling of urgency and frequency State that she has taken over the counter AZO and it has not helped much - Related Data Home Medications Medication Instructions Recorded Confirmed Buspirone HCl [Buspirone 15 mg 15 mg PO BID 08/27/19 11/17/19 Tablets] Allergies Allergy/AdvReac Type Severity Reaction Status Date / Time Sulfa (Sulfonamide Allergy Mild Verified 03/01/19 15:05 Antibiotics) [SULFA (SULFONAMIDE ANTIBIOTICS)] - Worker's Comp Is this a Worker's Comp case?: No [facility] History - Hepatitis A Screen Drug use history?: No High risk sexual behaviors?: No History of sexually transmitted infection?: No Currently employed?: No Childcare worker?: No Do you have indoor plu
[2019-11-17 14:20] LABS: Apearance,Urine Clear (Clear); Color,Urine Yellow (Yellow); UTC Strep Screen (Rapid) Negative (Negative)
[2019-11-17 14:21] LABS: Glucose,Urine (UA) Negative (Negative); Ketones,Urine Negative (Negative); PH,Urine 8.5 (5.0-8.5); Protein,Urine 1+ (Negative); Specific Gravity, Urine 1.015 (1.005-1.030)
[2019-11-17 14:22] LABS: Bilirubin,Urine Negative (Negative); Blood, Urine Negative (Negative); UTC Leukocyte Esterase,Urine Negative (Negative); UTC Nitrate,Urine Negative (Negative); Urobilinogen,Urine 1 EU/dl (0.2)
[2019-11-17 14:33] VITALS: BP 119/81; PULSE 83; RESP 20; TEMP 36.6; O2SAT 100
== END 2019-11-17 14:35 | disposition home or self-care (01) ==
PROVIDERS: Emergency Provider Nurse Practitioner; PCP Pediatrics
DX: J06.9 Acute upper respiratory infection, unspecified (principal); R30.0 Dysuria; Z88.2 Allergy status to sulfonamides; F41.9 Anxiety disorder, unspecified; F17.210 Nicotine dependence, cigarettes, uncomplicated
CPT/HCPCS: 81003; 87880; 99202

== ENCOUNTER → 2020-01-05 12:38 | Outpatient (CLI) | payer OTHER, SELFPAY ==
[2020-01-05 13:52] LABS: HCG,Quantitative < 2 mIU/ml (0-5.42)
== END ==
PROVIDERS: Visit Provider Nurse Practitioner Obstetrics & Gynecology
DX: Z32.00 Encounter for pregnancy test, result unknown (principal)
CPT/HCPCS: 36415; 84702

== ENCOUNTER 2020-09-17 10:08 | Emergency (ER) | payer OTHER, SELFPAY ==
[2020-09-17 10:10] VITALS: BP 117/74; PULSE 81; RESP 20; TEMP 36.1; O2SAT 97; BMI 20.1
--- NOTE | 2020-09-17 10:38 | HMH.EDUTC ---
[facility] [place] Disposition Clinical Impression: Exposure to COVID-19 virus Disposition: Home, Self-Care Condition on Discharge: Good Instructions: Preventing the Spread of Coronavirus Discharge Instructions Additional Instructions: Drink plenty of fluids. Take tylenol for pain or fever. Return if you begin to have difficulty breathing. Follow up with your regular doctor. GO TO THE ER FOR ANY WORSENING SYMPTOMS Referrals: [place] [Primary Care Provider] - Time of Disposition: 10:40 Medical Decision Making - Medical Records Medical records reviewed: No: I reviewed the patient's medical records. - Vega Inquiry Pt receiving controlled substance: No Vital Signs: 09/17/20 10:10 09/17/20 10:42 Temperature 97.0 F L 97.0 F L Temperature Source Temporal Artery Scan Pulse Rate 81 Pulse Rate [Right Brachial] 81 Respiratory Rate 20 20 Blood Pressure 117/74 Blood Pressure [Right Arm] 117/74 Blood Pressure Mean [Right Arm] 88 Blood Pressure Source [Right Arm] Automatic Cuff Blood Pressure Position [Right Arm] Sitting 02 Sat by Pulse Oximetry 97 Oxygen Delivery Method Room Air Orders (Tests/Meds): ORDERS Category Date Time Status Covid-19 Nasal PCR ([facility]) Routine Lab 09/17/20 10:25 Received [facility] [place] HPI - General Stated complaint: covid exposure Time Seen by Provider: 09/17/20 10:38 Mode of Arrival: Ambulatory Source of Information: Patient Limitations: No Limitations Description of Symptoms (Recalled from Triage Doc. by RN): COVID TEST D/T EXPOSURE. DENIES SYMPTOMS HEENT Symptoms (Recalled from RN notes): No Resp Symptoms (Recalled from RN notes): No Skin Symptoms (Recalled from RN notes): No MS Symptoms (Recalled from RN notes): No Functional Status (Recalled from RN notes): WNL - History of Present Illness Provider Complaint: Her sister tested positive for covid-19 yesterday. This patient denies any symptoms so far. - Related Data Home Medications Medication Instructions Recorded Confirmed Buspirone HCl [Buspirone 15 mg 15 mg PO BID 08/27/19 12/06/19 Tablets] Previous Rx's Medication Instructions Recorded medroxyprogesterone 150 mg/mL 150 mg IM [id number] #1 ml 12/06/19 intramuscular suspension Allergies Allergy/AdvReac Type Severity Reaction Status Date / Time Sulfa (Sulfonamide Allergy Mild Verified 12/06/19 14:53 Antibiotics) [SULFA (SULFONAMIDE ANTIBIOTICS)] - Worker's Comp Is this a Worker's Comp case?: No [facility] History - Hepatitis A Screen Drug use history?: No High risk sexual behaviors?: No History of sexually transmitted infection?: No Currently employed?: No Childcare worker?: No Do you have indoor plumbing?: Yes Do you have electricity?: Yes Attestation statement:: This patient has been screened for Hepatitis A risk factors. I have reviewed the patient's past medical history: Yes Medical History: Reports:: Anxiety Denies:: Cancer, Diabetes Mellitus Type 1, Diabetes Mellitus Type 2, MRSA, Seizures Other Medical History: Reports: Anemia, Sinus Problems. Denies: Blood Transfusion Reaction Other Surgeries: Yes: No Previous Surgery, Amputation: No Fractures: No Comment: wisdom teeth, cone biopsy/ECC - Social History Smoking Status: Current every day smoker Tobacco Type: cigarettes # Packs/Day (cigarettes): 1 #Yrs smoked (if former smoker): 5 Alcohol Intake: never Substance Use Type: denies use Occupational Status: other Housing: apartment Household Members: children - Psychiatric History Pschychiatric History:: Reports:: Anxiety Family Hx:: No significant family history, Hypertension, Diabetes ROS Obtained: Yes All systems reviewed & no additional complaints - Constitutional Constitutional: Reports system reviewed and no additional complaints, except as docu - Eyes Eyes: Reports system reviewed and no additional complaints, except as docu - ENT Ears, Nose, Mouth, and Throat: Rep
[2020-09-17 10:42] VITALS: BP 117/74; PULSE 81; RESP 20; TEMP 36.1; O2SAT 97
== END 2020-09-17 10:44 | disposition home or self-care (01) ==
PROVIDERS: Emergency Provider Nurse Practitioner Family; PCP Pediatrics
DX: Z20.822 Contact with and (suspected) exposure to COVID-19 (principal); F41.9 Anxiety disorder, unspecified; Z88.2 Allergy status to sulfonamides; F17.210 Nicotine dependence, cigarettes, uncomplicated; Z79.899 Other long term (current) drug therapy
CPT/HCPCS: 99202; G0463; U0003

== ENCOUNTER → 2020-12-04 18:50 | Outpatient (CLI) | payer OTHER, SELFPAY ==
[2020-12-04 18:57] VITALS: BMI 19.8
[2020-12-04 19:25] LABS: HCG Qualitative, Serum Negative (Negative)
== END ==
PROVIDERS: PCP Pediatrics; Visit Provider Nurse Practitioner Family
DX: Z32.00 Encounter for pregnancy test, result unknown (principal)
CPT/HCPCS: 84703

== ENCOUNTER 2020-12-07 09:55 | Emergency (ER) | payer OTHER, SELFPAY ==
[2020-12-07 10:05] VITALS: BP 139/70; PULSE 94; RESP 18; TEMP 37; O2SAT 98; BMI 20.5
[2020-12-07 10:31] LABS: UTC Pregnancy Test, Urine Negative (Negative)
--- NOTE | 2020-12-07 10:31 | HMH.EDUTC ---
[facility] – [place] Disposition Clinical Impression: test negative Disposition: Home, Self-Care Condition on Discharge: Good Instructions: Exercise and : A Healthy Combination, Home and Clinic Tests Additional Instructions: call later for blood test follow up with child care associate teacher if any new symptoms or worsening return or be seen in ed Referrals: [place] [Primary Care Provider] - Time of Disposition: 10:38 Medical Decision Making - Vega Inquiry Pt receiving controlled substance: No Vital Signs: 12/07/20 10:05 Temperature 98.6 F Temperature Source Oral Pulse Rate [Right Brachial] 94 H Respiratory Rate 18 Blood Pressure [Right Arm] 139/70 Blood Pressure Mean [Right Arm] 93 Blood Pressure Source [Right Arm] Automatic Cuff Blood Pressure Position [Right Arm] Sitting 02 Sat by Pulse Oximetry 98 Oxygen Delivery Method Room Air - Lab Data Lab Results 12/07/20 10:30: Tst Clinic Negative Orders (Tests/Meds): ORDERS Category Date Time Status Serum [HCG Qualitative, Serum] Stat Lab 12/07/20 10:30 Ordered [facility] [place] HPI - General Chief complaint: Urgent Treatment Center Stated complaint: wants pregancy test Time Seen by Provider: 12/07/20 10:31 Mode of Arrival: Ambulatory Source of Information: Patient Limitations: No Limitations Description of Symptoms (Recalled from Triage Doc. by RN): PATIENT REQUESTING TEST HEENT Symptoms (Recalled from RN notes): No Resp Symptoms (Recalled from RN notes): No Skin Symptoms (Recalled from RN notes): No MS Symptoms (Recalled from RN notes): No Functional Status (Recalled from RN notes): WNL - History of Present Illness Provider Complaint: 25 yr old female presents for preg test. pt states she took 4 at home last pm and they were all positive. pt states she is one day late but has sore tender breast. - Related Data Home Medications Medication Instructions Recorded Confirmed Buspirone HCl [Buspirone 15 mg 15 mg PO BID 08/27/19 12/06/19 Tablets] Previous Rx's Medication Instructions Recorded medroxyprogesterone 150 mg/mL 150 mg IM [id number] #1 ml 12/06/19 intramuscular suspension fluconazole 150 mg tablet 150 mg PO Q3D 0 Days #2 tab 11/05/20 Allergies Allergy/AdvReac Type Severity Reaction Status Date / Time Sulfa (Sulfonamide Allergy Mild Verified 12/06/19 14:53 Antibiotics) [SULFA (SULFONAMIDE ANTIBIOTICS)] - Worker's Comp Is this a Worker's Comp case?: No [facility] History - Hepatitis A Screen Drug use history?: No High risk sexual behaviors?: No History of sexually transmitted infection?: No Currently employed?: No Childcare worker?: No Do you have indoor plumbing?: Yes Do you have electricity?: Yes Attestation statement:: This patient has been screened for Hepatitis A risk factors. I have reviewed the patient's past medical history: Yes Medical History: Reports:: Anxiety Denies:: Cancer, Diabetes Mellitus Type 1, Diabetes Mellitus Type 2, MRSA, Seizures Other Medical History: Reports: Anemia, Sinus Problems. Denies: Blood Transfusion Reaction Other Surgeries: Yes: No Previous Surgery, Amputation: No Fractures: No Comment: wisdom teeth, cone biopsy/ECC - Social History Smoking Status: Current every day smoker Tobacco Type: cigarettes # Packs/Day (cigarettes): 1 #Yrs smoked (if former smoker): 5 Alcohol Intake: never Substance Use Type: denies use Occupational Status: other Housing: apartment Household Members: children - Psychiatric History Pschychiatric History:: Reports:: Anxiety Family Hx:: No significant family history, Hypertension, Diabetes ROS Obtained: Yes Systems reviewed as appropriate & no additional complaints - Constitutional Constitutional: Reports system reviewed and no additional complaints, except as docu, Denies poor appetite - Eyes Eyes: Reports system reviewed and no additional complaints, except as docu, Denies ch
[2020-12-07 10:41] VITALS: BP 139/70; PULSE 94; RESP 18; TEMP 37; O2SAT 98
[2020-12-07 11:05] LABS: HCG Qualitative, Serum Negative (Negative)
== END 2020-12-07 10:44 | disposition home or self-care (01) ==
PROVIDERS: Emergency Provider Nurse Practitioner Family; PCP Pediatrics
DX: N91.0 Primary amenorrhea (principal); Z32.02 Encounter for pregnancy test, result negative; F41.9 Anxiety disorder, unspecified; F17.210 Nicotine dependence, cigarettes, uncomplicated; Z88.2 Allergy status to sulfonamides
CPT/HCPCS: 81025; 84703; 99202; G0463

== ENCOUNTER → 2021-01-04 10:28 | Outpatient (CLI) | payer OTHER, SELFPAY ==
--- NOTE | 2021-01-04 10:32 | US_ITS ---
PROCEDURE: US OB <= 14 WEEKS FETUS CLINICAL INDICATION: US OB before 14 wks for DATES/CONFIRMATION COMPARISON: US OBFEMAT US OB /maternal detail from 11/19/2017 FINDINGS: An intrauterine gestational sac is present with a pole with a crown-rump length of 1.12 cm correlating to gestational age of 7 weeks 2 days. heart tones are present with an FHR of 130 BPM. Yolk sac is noted. Minimal amount fluid is noted along the anterior aspect of the gestational sac. The uterus is retroverted. IMPRESSION: Live IUP at 7 weeks 2 days. Small amount fluid is noted along the gestational sac which could be due to small subchorionic bleed. Suggest follow-up to confirm stability Estimated due date by Ultrasound is 08/21/2021 Dictated by: Iggy Salas MD 01/04/2021 22:35 Iggy Salas MD in [place] 01/04/2021 22:35
== END ==
PROVIDERS: PCP Pediatrics; Visit Provider Nurse Practitioner Obstetrics & Gynecology
DX: O26.841 Uterine size-date discrepancy, first trimester (principal)
CPT/HCPCS: 76801

== ENCOUNTER → 2021-01-28 11:48 | Outpatient (CLI) | payer OTHER, SELFPAY ==
[2021-01-28 12:12] LABS: Basophils % 0.3 % (0.1-2.0); Eosinophils # 0.5 K/mm3 (0.0-0.4); Eosinophils % 7.2 % (0.1-12.0); Hematocrit 42.4 % (37.0-47.0); Lymphocytes # 1.6 K/mm3 (0.7-4.5); Lymphocytes % 21.2 % (10-50); Mean Corpuscular Hemoglobin 31.5 pg (27.0-31.2); Mean Corpuscular Volume 95.5 fl (81-99); Mean Platelet Volume 7.6 fl (7.4-10.4); Monocytes # 0.5 K/mm3 (0.1-1.0); Monocytes % 7.2 % (1.7-9.3); Neutrophils # 4.8 K/mm3 (1.8-7.8); Platelet Count 305 K/mm3 (142-424); Red Blood Count 4.43 M/mm3 (4.20-5.40); Red Cell Distribution Width 12.1 % (11.5-17.5); White Blood Count 7.4 K/mm3 (4.8-10.8)
[2021-01-29 04:18] LABS: HIV Screen 4th Generation wRfx Non Reactive (Non Reactive); Hepatitis B Surface Antigen Negative (Negative); Hepatitis C Antibody <0.1 s/co ratio (0.0-0.9)
[2021-01-29 08:25] LABS: Rapid Plasma Reagin Ab Titer Non Reactive (NonRea<1:1)
[2021-01-29 09:16] LABS: HSV 2 IgG, Type Spec 5.22 index (0.00-0.90)
[2021-01-30 12:18] LABS: Rubella Antibodies, IgG 0.96 index (Immune >0.99)
== END ==
PROVIDERS: Visit Provider Nurse Practitioner Obstetrics & Gynecology
DX: Z34.90 Encounter for supervision of normal pregnancy, unspecified, unspecified trimester (principal); Z3A.01 Less than 8 weeks gestation of pregnancy
CPT/HCPCS: 36415; 85025; 86592; 86695; 86703; 86762; 86790; 86850; 87340; 87380; G0432

== ENCOUNTER 2021-01-29 19:47 | Emergency (ER) | payer OTHER, SELFPAY ==
[2021-01-29 20:20] VITALS: BP 104/69; PULSE 75; RESP 21; TEMP 36.9; O2SAT 98; BMI 21.1
--- NOTE | 2021-01-29 21:23 | HMH.EDUTC ---
[facility] [place] Clinical Impression: Sinus infection Qualifiers: Sinusitis location: unspecified location Chronicity: unspecified Qualified Code(s): J32.9 - Chronic sinusitis, unspecified Disposition: Home, Self-Care Condition on Discharge: Good Instructions: Sinusitis, DI for Sinusitis, Azithromycin Additional Instructions: *Monitor Temp, Over the counter Motrin or Tylenol as directed/as needed Tylenol every 4 hours and Motrin every 6 hours (as long as your family doctor has told you that you can take it) for fever or pain. and straight to ER if unable to lower temp less than 101.0 after medication given *Warm salt water gargles may help to soothe the throat *Throat Lozenges *Warm fluids like tea with honey may help to soothe the throat *Sleep elevated *Humidifier/Vaporizer Take medication as prescribed Check with your OBGYN and ask them what cough medication and nasal sprays do they recommend Make sure to check with Pharmacy before taking any medication while you are to make sure they are safe during Follow up IMMEDIATELY for new or worsening symptoms or no Noticeable improvement over the next 48-72 hours. 911 for difficulty breathing or swallowing Prescriptions: Fluticasone Propionate [Flonase 50mcg nasal spray 16gm] 1 spr NS DAILY #1 bottle Transmission Status: Pending to [facility] # Azithromycin [Z-Nicholas 250mg Tab] 250 mg PO DIRECTED #6 tab Transmission Status: Pending to [facility] # Referrals: [place] [Primary Care Provider] - Medical Decision Making - Vega Inquiry Pt receiving controlled substance: No Vega was queried for this patient: No Vital Signs: 01/29/21 20:20 Temperature 98.4 F Temperature Source Oral Pulse Rate [Right Brachial] 75 Respiratory Rate 21 Blood Pressure [Right Arm] 104/69 L Blood Pressure Mean [Right Arm] 80 Blood Pressure Source [Right Arm] Automatic Cuff Blood Pressure Position [Right Arm] Sitting 02 Sat by Pulse Oximetry 98 Oxygen Delivery Method Room Air Medical Decision Narrative: Medication discussed with pharmacy to make sure that medication was safe for use during [facility] [place] HPI - General Stated complaint: cough Time Seen by Provider: 01/29/21 21:23 Mode of Arrival: Ambulatory Source of Information: Patient Limitations: No Limitations Description of Symptoms (Recalled from Triage Doc. by RN): PATIENT C/O COUGH AND CONGESTION X 1 WEEK HEENT Symptoms (Recalled from RN notes): Yes Resp Symptoms (Recalled from RN notes): Yes Skin Symptoms (Recalled from RN notes): No MS Symptoms (Recalled from RN notes): No Functional Status (Recalled from RN notes): WNL - History of Present Illness Provider Complaint: Patient states that she has been having sinus pressure and pain for over a week States that she feels like it is trying to move into her chest area and she is 11wk OB States that she has also started having a cough but not sure what she can take while she is - Related Data Home Medications Medication Instructions Recorded Confirmed PNV 153-FA 400 mcg-om3 35 mg-dha 1 tab PO DAILY 12/25/20 01/29/21 25 mg-epa 5 mg-fish oil chew tablet Previous Rx's Medication Instructions Recorded Azithromycin [Z-Nicholas 250mg Tab] 250 mg PO DIRECTED #6 tab 01/29/21 Fluticasone Propionate [Flonase 1 spr NS DAILY #1 bottle 01/29/21 50mcg nasal spray 16gm] Allergies Allergy/AdvReac Type Severity Reaction Status Date / Time Sulfa (Sulfonamide Allergy Mild Verified 01/29/21 15:08 Antibiotics) [SULFA (SULFONAMIDE ANTIBIOTICS)] - Worker's Comp Is this a Worker's Comp case?: No [facility] History - Hepatitis A Screen Drug use history?: No High risk sexual behaviors?: No History of sexually transmitted infection?: No Currently employed?: No Childcare worker?: No Do you have indoor plumbing?: Yes Do you have electricity?: Yes Attestation statement:: This p
[2021-01-29 21:33] VITALS: BP 104/69; PULSE 75; RESP 21; TEMP 36.9; O2SAT 98
== END 2021-01-29 21:41 | disposition home or self-care (01) ==
PROVIDERS: Emergency Provider Nurse Practitioner; PCP Pediatrics
DX: J32.9 Chronic sinusitis, unspecified (principal); Z3A.11 11 weeks gestation of pregnancy; F41.9 Anxiety disorder, unspecified; F17.210 Nicotine dependence, cigarettes, uncomplicated

== ENCOUNTER → 2021-01-30 11:39 | Outpatient (CLI) | payer OTHER, SELFPAY | PROVIDERS: Visit Provider Nurse Practitioner Obstetrics & Gynecology | DX: Z34.90 Encounter for supervision of normal pregnancy, unspecified, unspecified trimester (principal) | CPT/HCPCS: 36415 ==

== ENCOUNTER → 2021-04-03 10:23 | Outpatient (CLI) | payer OTHER, SELFPAY ==
--- NOTE | 2021-04-03 10:23 | US_ITS ---
PROCEDURE: US OB /MATERNAL DETAIL CLINICAL INDICATION: 20 WEEKS GESTATION COMPARISON: US US OB <= 14 WEEKS FETUS from 01/04/2021 FINDINGS: There is a single live fetus present in cephalic presentation. The cervix is closed measuring 4 cm. The the placenta is anterior and grade 1. Complete survey performed and was unremarkable on the submitted images as in PACS. No discrete anomalies identified on survey imaging by technologist. Active fetus. Three-vessel cord with satisfactory umbilical cord insertion. 4- chamber heart noted. Survey of brain & ventricles Unremarkable. Face and neck survey unremarkable. Diaphragm and chest views unremarkable. Abdomen: Both kidneys noted and unremarkable. Stomach noted and satisfactory. Spine: Survey of the spine satisfactory with no anomalies identified nor imaged. Both arms and legs noted. Amniotic Fluid: Adequate. Maternal adnexa: No significant findings. Measurements: Average ultrasound age 20weeks 3days. Gestational Age 20weeks 3days Estimated due date by ultrasound age 0108/18/2021. Estimated weight 357g BPD = 20weeks 3days OFD = 20weeks 4days HC = 19weeks 6days AC = 20weeks 4days FL = 20weeks 5days Growth Percentile= 48% Heart Rate = 152bpm Cerebellum = 20weeks 5days Humerus = 20weeks 3days HC/AC is 1.13 CI is 0.78 FL/BPD is 0.71 FL/AC is 0.22 IMPRESSION: Live IUP in cephalic presentation with an average ultrasound age of 20 weeks 3 days. No obvious anomalies. Please see above for detail. Dictated by: gIgy Salas MD 04/03/2021 13:46 Iggy Salas MD in [place] 04/03/2021 13:46
== END ==
PROVIDERS: PCP Pediatrics; Visit Provider Nurse Practitioner Obstetrics & Gynecology
DX: Z36.0 Encounter for antenatal screening for chromosomal anomalies (principal)
CPT/HCPCS: 76811

== ENCOUNTER 2021-06-09 18:56 | Emergency (ER) | payer OTHER, SELFPAY ==
[2021-06-09 20:00] VITALS: BP 110/74; PULSE 91; RESP 21; TEMP 37.1; O2SAT 100; BMI 25.9
[2021-06-09 20:10] LABS: UTC Strep Screen (Rapid) Negative (Negative)
--- NOTE | 2021-06-09 20:41 | HMH.EDUTC ---
[facility] [place] Clinical Impression: URI (upper respiratory infection) Qualifiers: URI type: unspecified URI Qualified Code(s): J06.9 - Acute upper respiratory infection, unspecified Disposition: Home, Self-Care Condition on Discharge: Good Instructions: DI for Strep Throat, Strep Throat, Amoxicillin Additional Instructions: *Monitor Temp, Over the counter Motrin or Tylenol as directed/as needed Tylenol every 4 hours and Motrin every 6 hours (as long as your family doctor has told you that you can take it) for fever or pain. and straight to ER if unable to lower temp less than 101.0 after medication given *Warm salt water gargles may help to soothe the throat *Throat Lozenges *Warm fluids like tea with honey may help to soothe the throat *Sleep elevated *Humidifier/Vaporizer Take medication as prescribed Your throat swab was sent for culture. Those results are typically sent to your primary care. Be sure to follow up in 2-3 days with your family doctor/primary care physician if no improvement so they can review those result and treat if necessary. If you don?t have a primary care doctor, I recommend you get one but in the mean time, you will have to return to a walk in clinic Follow up IMMEDIATELY for new or worsening symptoms or no Noticeable improvement over the next 48-72 hours. 911 for difficulty breathing or swallowing Prescriptions: Amoxicillin [Amoxicillin 500mg Cap] 500 mg PO BID 10 Days #20 cap Transmission Status: Pending to [facility][id number] Referrals: [place] MD [Primary Care Provider] - Medical Decision Making - Vega Inquiry Pt receiving controlled substance: No Vega was queried for this patient: No Vital Signs: 06/09/21 20:00 Temperature 98.8 F Temperature Source Oral Pulse Rate [Right Brachial] 91 H Respiratory Rate 21 Blood Pressure [Right Arm] 110/74 Blood Pressure Mean [Right Arm] 86 Blood Pressure Source [Right Arm] Automatic Cuff Blood Pressure Position [Right Arm] Sitting 02 Sat by Pulse Oximetry 100 Oxygen Delivery Method Room Air - Lab Data Lab results reviewed: Yes: I reviewed the patient's lab results. Lab Results 06/09/21 19:53: Strep Scn Rapid Clinic Negative Orders (Tests/Meds): ORDERS Category Date Time Status Strep Screen Confirmation Stat Micro 06/09/21 19:53 Received Medical Decision Narrative: Medication discussed with pharmacy [facility] [place]PI - General Stated complaint: sore throat Time Seen by Provider: 06/09/21 20:41 Mode of Arrival: Ambulatory Source of Information: Patient Limitations: No Limitations Description of Symptoms (Recalled from Triage Doc. by RN): PATIENT C/O SORE THROAT SINCE YESTERDAY HEENT Symptoms (Recalled from RN notes): Yes Resp Symptoms (Recalled from RN notes): No Skin Symptoms (Recalled from RN notes): No MS Symptoms (Recalled from RN notes): No Functional Status (Recalled from RN notes): WNL - History of Present Illness Provider Complaint: Patient states that she started having sore throat yesterday States that her daughter and sister both are positive States that she feels like she may have it now too - Related Data Home Medications Medication Instructions Recorded Confirmed PNV 153-FA 400 mcg-om3 35 mg-dha 1 tab PO DAILY 12/25/20 06/06/21 25 mg-epa 5 mg-fish oil chew tablet promethazine 12.5 mg tablet 12.5 mg PO tab 03/27/21 06/06/21 Previous Rx's Medication Instructions Recorded famotidine 20 mg tablet 20 mg PO DAILY #60 tab 04/24/21 ferrous gluconate 324 mg (37.5 mg 324 mg PO DAILY #30 tab 05/23/21 iron) tablet polyethylene glycol 3350 17 17 g PO DAILY #238 g 05/23/21 gram/dose oral powder Amoxicillin [Amoxicillin 500mg 500 mg PO BID 10 Days #20 cap 06/09/21 Cap] Allergies Allergy/AdvReac Type Severity Reaction Status Date / Time Sulfa (Sulfonamide Allergy Mild Verified 06/06/21 08:48 Antibiotics) [SULFA (SULFONAMIDE ANTIBIOTI
[2021-06-09 20:48] VITALS: BP 110/74; PULSE 91; RESP 21; TEMP 37.1; O2SAT 100
== END 2021-06-09 20:54 | disposition home or self-care (01) ==
PROVIDERS: Emergency Provider Nurse Practitioner; PCP Pediatrics
DX: J06.9 Acute upper respiratory infection, unspecified (principal); F41.9 Anxiety disorder, unspecified; F17.210 Nicotine dependence, cigarettes, uncomplicated; Z88.2 Allergy status to sulfonamides
CPT/HCPCS: 87880; 99202; G0463

== ENCOUNTER → 2021-07-08 09:07 | Outpatient (CLI) | payer OTHER, SELFPAY ==
--- NOTE | 2021-07-08 09:07 | US_ITS ---
PROCEDURE: US OB FOLLOW UP CLINICAL INDICATION: decreased movement FINDINGS: The following parameters are obtained: There is a single live fetus present which is in cephalic presentation. heart and body motion noted. Placenta is anterior and grade 2. No previa or abruption. Cervix is closed measuring 3 cm. Average ultrasound age is Average 33weeks 5days Estimated due date by ultrasound is 08/21/2021. Estimated weight is 2,200g. This is 25th percentile BPD: 33weeks 6days OFD: 34 weeks 1 day HC: 33weeks 5days AC: 33weeks 1day FL: 34weeks 1day heart rate: 155bpm bpm. HC/AC: 1.04 Cephalic index: 0.78 FL/BPD: 0.79 FL/AC: 0.23 Amniotic fluid index: 12.39cm Biophysical profile is 8 of 8 IMPRESSION: Live IUP in cephalic presentation with an average ultrasound age of 33 weeks 5 days, estimated weight of 2200 g which is 25th percentile. Normal amniotic fluid index of 12 cm Biophysical profile 8 of 8 Dictated by: Iggy Salas MD 07/08/2021 13:43 Iggy Salas MD in [place] 07/08/2021 13:43
== END ==
PROVIDERS: PCP Pediatrics; Visit Provider Nurse Practitioner Obstetrics & Gynecology
DX: O36.8190 Decreased fetal movements, unspecified trimester, not applicable or unspecified (principal)
CPT/HCPCS: 76816; 76819

== ENCOUNTER → 2021-07-25 15:58 | Outpatient (CLI) | payer OTHER, SELFPAY | PROVIDERS: Visit Provider Nurse Practitioner Obstetrics & Gynecology | DX: Z34.90 Encounter for supervision of normal pregnancy, unspecified, unspecified trimester (principal) | CPT/HCPCS: 86403 ==

== ENCOUNTER → 2021-08-13 11:56 | Outpatient (CLI) | payer OTHER, SELFPAY ==
[2021-08-13 12:27] LABS: Basophils # 0.2 K/mm3 (0-0.2); Basophils % 1.3 % (0.1-2.0); Eosinophils # 0.2 K/mm3 (0.0-0.4); Eosinophils % 1.3 % (0.1-12.0); Hematocrit 39.2 % (37.0-47.0); Hemoglobin 12.5 g/dL (12.2-16.2); Lymphocytes # 2.1 K/mm3 (0.7-4.5); Lymphocytes % 16.1 % (10-50); Mean Corpuscular HGB Conc 31.8 g/dL (31.8-35.4); Mean Corpuscular Volume 103.7 fl (81-99); Mean Platelet Volume 8.9 fl (7.4-10.4); Monocytes # 0.9 K/mm3 (0.1-1.0); Monocytes % 6.8 % (1.7-9.3); Neutrophils # 9.8 K/mm3 (1.8-7.8); Neutrophils % 74.5 % (37.0-80.0); Platelet Count 402 K/mm3 (142-424); Red Blood Count 3.78 M/mm3 (4.20-5.40); Red Cell Distribution Width 13.7 % (11.5-17.5); White Blood Count 13.1 K/mm3 (4.8-10.8)
[2021-08-13 13:02] LABS: Chloride 108 mmol/L (98-107); Potassium 3.7 mmoL/L (3.5-5.1); Sodium 132 mmol/L (136-145)
[2021-08-13 13:05] LABS: Blood Urea Nitrogen 3 mg/dl (7-17); Estimated Glomerular Filt Rate 149 ml/min (>60); GFR (African American) 180 ML/MIN (>60)
[2021-08-13 13:06] LABS: Anion Gap 4.7 mEq/L (5-15); Calcium 8.8 mg/dl (8.4-10.2); Carbon Dioxide 23 mmol/L (22.0-30.0); Glucose 78 mg/dl (74-100)
== END ==
PROVIDERS: PCP Pediatrics; Visit Provider Nurse Practitioner Obstetrics & Gynecology
DX: Z01.818 Encounter for other preprocedural examination (principal); Z3A.38 38 weeks gestation of pregnancy
CPT/HCPCS: 36415; 80048; 85025; C9803; U0003; U0005

== ENCOUNTER 2021-08-15 05:03 | Inpatient (IN) | payer OTHER, SELFPAY ==
[2021-08-15] VITALS (9 sets, daily range): BP systolic 102–157; BP diastolic 63–105; PULSE 56–86; RESP 13–18; TEMP 36.1–36.6; O2SAT 97–100; BMI 26.9
[2021-08-15 06:11] LABS: Influenza A, PCR Not Detected (NotDetected); Influenza B, PCR Not Detected (NotDetected); Microscopic, Urine URINE MICROSCOPIC (MICROSCOPIC)
[2021-08-15 06:28] LABS: Appearance,Urine CLOUDY (Clear); Bilirubin,Urine Negative (Negative); Blood, Urine Negative (Negative); Color,Urine YELLOW (Yellow); Glucose,Urine (UA) Negative (Negative); Ketones,Urine Negative (Negative); Leukocyte Esterase,Urine TRACE (Negative); Nitrate,Urine Negative (Negative); PH,Urine 7.5 (5.0-8.5); Protein,Urine Negative (Negative); Specific Gravity, Urine 1.015 (1.005-1.030); Urobilinogen,Urine 0.2 EU/dl (0.2)
[2021-08-15 06:38] LABS: Barbiturates Screen,Urine Negative ng/ml (<200)
[2021-08-15 06:39] LABS: Amphetamine/Metha Screen,Urine Negative ng/ml (<1000); Benzodiazepines Screen,Urine Negative ng/ml (<200)
[2021-08-15 06:40] LABS: Cannabinoid Screen,Urine Negative ng/ml (<50)
[2021-08-15 06:41] LABS: Cocaine Screen,Urine Negative ng/ml (<300); Methadone Screen,Urine Negative ng/ml (<300)
[2021-08-15 06:42] LABS: Opiate Screen,Urine Negative ng/ml (<300); Phencyclidine Screen,Urine Negative ng/ml (<25)
[2021-08-15 06:47] LABS: Coronavirus 19, PCR Detected (NotDetected)
[2021-08-15 06:59] LABS: WBC,Urine Occasional #/hpf (0-3)
[2021-08-15 07:00] LABS: Amorphous Sediment,Urine 1+ /lpf; Bacteria,Urine 1+ /lpf
[2021-08-15 08:06] LABS: Cord Blood PH 7.19 (7.35-7.45)
--- NOTE | 2021-08-15 08:27 | HMH.OPNOTE ---
Date of procedure: 08/15/21 Pre-op Diagnosis:: Term , previous section Post-op Diagnosis:: Term , previous section Procedure performed:: Repeat lower segment transverse section Surgeon:: Ben Pacheco MD Slat Basket Maker(s):: Nuvia Parnell CASE MANAGER SPECIALIST:: Other (Arturo Jha) Anesthesia: spinal Estimated blood loss (mL): 600 Clinical Note:: She is a 25-year-old 2 para 1 at 39 weeks gestational age. She had a previous section and asked for repeat lower segment transverse section. The risks and benefits of surgery were discussed the patient. This morning prior to surgery she asked for her tubes to be removed. During the surgery she changed her mind and decided not to have a bilateral salpingectomy. Operative findings:: She delivered a liveborn female child at 7:57 AM on the morning of August 15, 2021. The baby had Apgars of 4 at 1 minute 9 at 5 minutes and 10 at 10 minutes. Ovaries and tubes appeared normal. The baby was delivered with her face up and when I opened up her uterus the face was coming through the incision. Operative note:: She was taken to the operating room where spinal anesthesia was found be adequate. She was prepped and draped in normal sterile fashion in the supine position with a leftward tilt. A Cooper catheter was in the bladder. A Pfannenstiel skin incision was made with knife then carried through to the underlying layer of fascia with cautery. The fascia was opened in the midline with cautery and extended laterally using Mcmillan scissors. [place] clamps were applied to the superior aspect of the fascial incision which was tented up and the underlying rectus muscles dissected off using cautery. The Graeme clamps were then applied to the inferior aspect of the fascial incision which in a similar fashion was tented up and the underlying rectus muscles dissected off using cautery. The rectus muscles were then in the midline, the peritoneum identified, and entered sharply with Metzenbaum scissors. This incision was then extended superiorly and inferiorly with cautery. We had good visualization of the bladder inferiorly. I then inserted the Jhony retractor. The bladder peritoneum was then opened in the midline and extended laterally using Metzenbaum scissors. A bladder flap was created digitally. Transverse incision was made through the uterine muscle to the amnion. This incision was then extended laterally using fingers traction. The amnion was entered sharply with knife. There was clear amniotic fluid. The instruments and base was visible in the incision and I had to deflect the baby's head. The infant's head was then delivered atraumatically. This was followed by the anterior shoulder and the rest of the infant's body atraumatically. The baby was quite limp. The was then handed off to Dr. Robles who assigned Apgars of 4 at 1 minute and 9 at 5 minutes and 10 at 10 minutes.. We then obtained cord blood as well as cord pH. The pH was 7. 1 8. Using gentle traction on the cord and countertraction on the fundus I was able to easily deliver the placenta intact. It had a normal three-vessel cord. The uterus was then cleared of clots and debris . The uterine incision was then closed using running 0 Vicryl suture in a locked fashion. A second layer of the same suture was used to imbricate the first layer. The bladder peritoneum was then closed using running 2-0 Vicryl suture in a locked fashion. The gutters and cul-de-sac were then cleared of clots and debris . Once again hemostasis was assured. The peritoneum was grasped with Mel clamps and closed using running 2-0 Vicryl suture. The rectus muscles were then reapproximated using running 0 Vicryl suture. The fascia was closed using running #1 Vicryl suture. The subcutaneous tissues were then irrigated with warm water followed by closure Niraj's fascia using running 2-0 Monocryl suture. The skin wa
--- NOTE | 2021-08-15 08:40 | HMH.OBAPHP ---
OB - H&P: HPI Antepartum - History of Present Illness Chief complaint: Term , previous section, COVID-positive History of present illness: She is a 25-year-old 2 para 1 at 39 weeks gestational age. She has had a previous section and as result of that is offered repeat lower segment transverse section. - History of Present Criteria for establishing EDC:: LMP confirmed by 1st trimester US care: good care Ultrasounds: normal 1st trimester US, normal mid trimester US Obstetrical complications: previous Medical complications: none - Labs Blood type: A (+) positive Rubella: immune RPR/VDRL: nonreactive GBS status: negative HBsAG: negative [facility] History I have reviewed the patient's past medical history: Yes Medical History: Reports:: Anxiety Denies:: Cancer, Diabetes Mellitus Type 1, Diabetes Mellitus Type 2, MRSA, Seizures *Have you ever received a pneumonia vaccine?: No *Have you received a flu vaccine this season?: No Other Medical History: Reports: Anemia, Sinus Problems. Denies: Blood Transfusion Reaction Other Surgeries: Yes: No Previous Surgery, Amputation: No Fractures: No - *Social History Smoking Status: Current every day smoker Tobacco Type: cigarettes # Packs/Day (cigarettes): 1 #Yrs smoked (if former smoker): 5 Alcohol Intake: never Alcohol Intake Frequency:: other Substance Use Type: denies use *Occupational Status:: employed Housing: apartment Household Members: children *Travel in the last 8 weeks: None - Psychiatric History Pschychiatric History:: Reports:: Anxiety Family Hx:: Hypertension, Diabetes Para: 1 Review of Systems - Review of Systems Review of systems:: pertinent systems reviewed and negative unless documented below Meds Allergies Allergy/AdvReac Type Severity Reaction Status Date / Time Sulfa (Sulfonamide Allergy Mild Verified 08/09/21 11:00 Antibiotics) [SULFA (SULFONAMIDE ANTIBIOTICS)] OB - H&P: Exam - Physical Exam Vital signs: Temp Pulse Resp BP Pulse Ox 97.8 F 86 18 118/71 100 08/15/21 06:03 08/15/21 06:03 08/15/21 06:03 08/15/21 06:03 08/15/21 06:03 - Constitutional no acute distress - Routine HEENT Exam Head: Present: normocephalic Eye: Present: EOMI, PERRL ENT: Present: mucous membranes moist - Routine Neck Exam Present: supple, full ROM - Routine Respiratory Exam Absent: accessory muscle use (good air entry bilaterally), respiratory distress, wheezes, crackles - Routine Cardiovascular Exam Present: RRR. Absent: murmur - Routine Abdominal Exam Present: soft, normoactive bowel sounds. Absent: tenderness, distended, guarding - Routine Rectal Exam Patient deferred: visual exam, digital exam - Routine Exam Patient deferred: external exam, groin exam, perineal exam - Routine Extremities Exam Present: full ROM. Absent: cyanosis, edema - Routine Skin Exam Present: intact. Absent: cyanosis - Routine Neurological Exam Present: alert, oriented X3 - Routine Psychiatric Exam Present: normal affect OB - Results - Labs Labs: Urine 08/15/21 Range/Units 05:45 Urine Color Yellow (Yellow) Urine Appearance Cloudy (Clear) Urine pH 7.5 (5.0-8.5) Ur Specific [place] 1.015 (1.005-1.030) Urine Protein Negative (Negative) Urine Glucose (UA) Negative (Negative) OB - A/P Antepartum (1) Previous section complicating Status: Acute (2) delivery delivered Status: Acute (3) SARS-CoV-2 antibody positive Status: Acute - Additional Plan Planning to breastfeed?: No Plan: other Additional Information:: She is admitted for repeat lower segment transverse section.
--- NOTE | 2021-08-15 08:53 | P.PN_ITS ---
[facility] Anesthesia Checklist - Patient Identification Patient Identification: Arm Band, Verbal (Name & ) - Structural Data Admitted From: Inpatient Planned Operative Procedure/s: Repeat Consent for Planned Operative Procedure(s) Verified: Yes Verified Documents: Surgical Consent - NPO Status Verified Time NPO: 00:00 - Chart Verification Results Verified: CBC - Additional verifications Anesthesia Reactions: No Hx Blood Transfusions: No Blood Transfusion Reaction: No - Airway Assessment C-Spine Mobility Assessed: Yes TMJ Mobility Assessed: Yes Dentition: Good Dentition - Neurological Assessment Level of Consciousness: Awake, Alert, Appropriate - Anesthesia Plan ASA Class: II Anesthesia Type: Spinal [facility] History I have reviewed the patient's past medical history: Yes Medical History: Reports:: Anxiety Denies:: Cancer, Diabetes Mellitus Type 1, Diabetes Mellitus Type 2, MRSA, Seizures *Have you ever received a pneumonia vaccine?: No *Have you received a flu vaccine this season?: No Other Medical History: Reports: Anemia, Sinus Problems. Denies: Blood Transfusion Reaction Anesthesia experience/problems:: none Other Surgeries: Yes: No Previous Surgery, Amputation: No Fractures: No - *Social History Smoking Status: Current every day smoker Tobacco Type: cigarettes # Packs/Day (cigarettes): 1 #Yrs smoked (if former smoker): 5 Alcohol Intake: never Alcohol Intake Frequency:: other Substance Use Type: denies use *Occupational Status:: employed Housing: apartment Household Members: children *Travel in the last 8 weeks: None - Psychiatric History Pschychiatric History:: Reports:: Anxiety Family Hx:: Hypertension, Diabetes Para: 1
--- NOTE | 2021-08-15 09:23 | HMH.ANESI ---
[facility] Anesthesia Record Part I Intake, IV Amount: 1,700 Estimated blood loss (mL): 600 Urine output (mL): 100 Blood Pressure: 157/105 SaO2: 97 Pulse Rate: 72 Respiratory Rate: 13 Temperature: 97.0 F Patient is:: Awake Stable to PACU at:: 08:30
--- NOTE | 2021-08-15 10:12 | SUR.OPER ---
0830- pt to stay in OR for PACU recovery in negative pressure room under freddie george care
--- NOTE | 2021-08-15 10:13 | SUR.PHASEI ---
[id number]- detailed report called to freddie antonio on OB floor at this time.
[2021-08-15 14:17] LABS: Microscopic,Cath URINE MICROSCOPIC (MICROSCOPIC)
[2021-08-15 14:26] LABS: Appearance,Urine/Cath CLEAR (Clear); Bilirubin,Cath Negative (Negative); Blood, Urine/Cath Negative (Negative); Color,Urine/Cath STRAW (Yellow); Glucose,Urine/Cath (UA) Negative (Negative); Ketones,Urine/Cath Negative (Negative); Leukocyte Esterase,Cath Negative (Negative); Nitrate,Cath Negative (Negative); PH,Urine/Cath 7.5 (5.0-8.5); Protein,Urine/Cath Negative (Negative); Specific Gravity, Urine/Cath <= 1.005 (1.005-1.030); Urobilinogen,Cath 0.2 EU/dl (0.2)
[2021-08-15 15:06] LABS: Bacteria,Urine/Cath TRACE /lpf
--- NOTE | 2021-08-15 18:42 | HMH.ANESII ---
[facility] Anesthesia Record Part II Discharge Time: 09:00 Destination: Obstetric PACU nurse assessment reviewed?: Yes Patient Condition:: Good Anesthesia Complications:: None none Swallowing reflex intact?: Yes Cyanosis?: No Blood Pressure: 133/84 Pulse Rate: 56 Temperature: 97.3 F Mental Status: Alert & Oriented Pain level:: 0 Nausea and/or vomitting:: None Intake, IV Amount: 0
[2021-08-16 03:52] VITALS: BP 102/55; PULSE 58; RESP 18; TEMP 36.6; O2SAT 99
[2021-08-16 06:30] LABS: Hematocrit 30.6 % (37.0-47.0); Hemoglobin 9.9 g/dL (12.2-16.2)
--- NOTE | 2021-08-16 08:54 | P.PN_ITS ---
Internal Medicine - PN: Subj *Date: 08/16/21 *Time: 08:54 Interval history: She is doing very well this morning. She is eating and drinking and ambulating. She is bottlefeeding. Her lochia is normal. Her incision is clean and dry. Her pain is well controlled. Exam Vital signs and Labs for Last 24 Hours: Temp Pulse Resp BP Pulse Ox 97.9 F 58 L 18 102/55 L 99 08/16/21 03:52 08/16/21 03:52 08/16/21 03:52 08/16/21 03:52 08/16/21 03:52 Laboratory Results - last 24 hr 08/15/21 07:40: Urine Color Straw, Urine Appearance Clear, Urine pH 7.5, Ur Specific [place] <= 1.005, Urine Protein Negative, Urine Glucose (UA) Negative, Urine Ketones Negative, Urine Blood Negative, Urine Nitrate Negative, Urine Bilirubin Negative, Urine Urobilinogen 0.2, Ur Leukocyte Esterase Negative, Urine RBC None, Urine WBC 3-5, Ur Squamous Epith Cells None, Urine Bacteria Trace 08/16/21 06:05: Hgb 9.9 L, Hct 30.6 L I & O for Last 24 hours: Intake & Output 08/13/21 08/14/21 08/15/21 08/16/21 11:59 11:59 11:59 11:59 Intake Total 1700 / 1700 0 / 0 Balance 1700 / 1700 0 / 0 Weight 162 lb - Constitutional no acute distress - *Routine HEENT Exam Head: Present: normocephalic Eye: Present: EOMI, PERRL ENT: Present: mucous membranes moist Assessment and Plan (1) Previous section complicating Status: Acute Category: Surgical Code(s): O34.219 - Maternal care for unspecified type scar from previous delivery (2) delivery delivered Status: Acute Category: Medical Code(s): O82 - Encounter for delivery without indication (3) SARS-CoV-2 antibody positive Status: Acute Category: Medical Code(s): R76.8 - Other specified abnormal immunological findings in serum - Assessment and plan all Dx Assessment and Plan for all problems:: She is doing very well today. We will plan to send her home tomorrow.
[2021-08-16 20:47] VITALS: BP 104/59; PULSE 62; RESP 17; TEMP 36.7; O2SAT 99
[2021-08-17 03:24] VITALS: BP 108/55; PULSE 53; RESP 18; TEMP 36.6; O2SAT 99
--- NOTE | 2021-08-17 11:06 | HMH.ACPN2 ---
Internal Medicine - PN: Subj *Date: 08/17/21 *Time: 11:06 (This is and postop day #2. Well. Her vital signs are stable. Hemoglobin 9.9 g. Lochia normal. Uterine fundus involuting well. Wound clean. Abdomen soft. COVID-positive, but asymptomatic. She will be discharged today.) Exam Vital signs and Labs for Last 24 Hours: Temp Pulse Resp BP Pulse Ox 97.8 F 53 L 18 108/55 L 99 08/17/21 03:24 08/17/21 03:24 08/17/21 03:24 08/17/21 03:24 08/17/21 03:24 I & O for Last 24 hours: Intake & Output 08/14/21 08/15/21 08/16/21 08/17/21 11:59 11:59 11:59 11:59 Intake Total 1700 / 1700 0 / 0 Balance 1700 / 1700 0 / 0 Weight 162 lb Assessment and Plan (1) Previous section complicating Status: Acute Category: Surgical Code(s): O34.219 - Maternal care for unspecified type scar from previous delivery (2) delivery delivered Status: Acute Category: Medical Code(s): O82 - Encounter for delivery without indication (3) SARS-CoV-2 antibody positive Status: Acute Category: Medical Code(s): R76.8 - Other specified abnormal immunological findings in serum
--- NOTE | 2021-08-17 11:08 | P.DS_ITS ---
General - General Admission date:: 08/15/21 Discharge date: 08/17/21 Hospital Course Hospital Course: This 25-year-old 2, now para 2, Ab0 white female was admitted at 39 weeks for repeat section. On the date of admission, she underwent that procedure without complications. Baby was an 4/9/ten 6 pound 1 ounce, 20 inch female infant, who is bottlefeeding and has done well. The patient received a TAP block, and has not required narcotics /postoperatively. Her hemoglobin is 9.9 g. She is eating and ambulating, and passing flatus. Her wound is clean. Her abdomen is soft. Her lochia is normal. Her uterine fundus has involuted well. She was found to be COVID positive and has followed in house protocol, but remains asymptomatic. She is discharged home on the second /postoperative day on iron and vitamins, and on Tylenol and Motrin, as needed for pain. She is given appropriate instructions as to diet, exercise, and wound care. She is also given appropriate isolation instructions with regard to her COVID status. She is to follow-up with Dr. Pacheco as scheduled. Her blood type is B+. Her rubella titer is nonimmune, and she will be vaccinated prior to discharge. Rhogam Administration: Not Indicated Objective Vital signs: Temp Pulse Resp BP Pulse Ox 97.8 F 53 L 18 108/55 L 99 08/17/21 03:24 08/17/21 03:24 08/17/21 03:24 08/17/21 03:24 08/17/21 03:24 no acute distress - *Routine HEENT Exam Head: Present: normocephalic Eye: Present: EOMI, PERRL ENT: Present: mucous membranes moist - *Routine Neck Exam Present: supple - *Routine Respiratory Exam Present: CTA bilaterally - *Routine Cardiovascular Exam Present: RRR - *Routine Abdominal Exam Present: soft, normoactive bowel sounds. Absent: tenderness - *Routine Extremities Exam Absent: cyanosis, clubbing, edema - *Routine Skin Exam Present: warm. Absent: rash - Detailed Eye Exam Eyelids: Bilateral normal inspection DS: Diagnosis - Discharge Diagnosis (1) Previous section complicating Status: Acute (2) delivery delivered Status: Acute (3) SARS-CoV-2 antibody positive Status: Acute Discharge Plan - Patient Discharge Instructions Patient Instructions: Depression, Hemorrhage, DI for Pre- eclampsia, COVID-19: Protecting Yourself When You're at High Risk, DI for - Follow up Plan Follow up with: Ben Pacheco MD [Staff Physician] - Disposition: Home, Self-Care Condition at discharge:: Stable Home Medications: Home Medications Medication Instructions Recorded Confirmed Type No Known Home Medications 08/15/21 08/15/21 History Prescriptions/Medication Reconciliation: No Action No Known Home Medications - Problem Reconciliation Problems Reviewed?: Yes
== END 2021-08-17 12:30 | disposition home or self-care (01) | DRG 786 ==
PROVIDERS: Admitting Provider Nurse Practitioner Obstetrics & Gynecology; PCP Pediatrics; Visit Provider Nurse Practitioner Obstetrics & Gynecology
PROC: 10D00Z1 Extraction of Products of Conception, Low, Open Approach (ICD-10-PCS; CPT 59514; principal; 2021-08-15 07:30)
DX: O34.211 Maternal care for low transverse scar from previous cesarean delivery (principal); U07.1 COVID-19; O98.52 Other viral diseases complicating childbirth; Z3A.39 39 weeks gestation of pregnancy; Z37.0 Single live birth; O99.334 Smoking (tobacco) complicating childbirth; F17.210 Nicotine dependence, cigarettes, uncomplicated; N85.8 Other specified noninflammatory disorders of uterus
CPT/HCPCS: 59515; 36415; 59025; 80048; 80305; 81001; 82800; 85014; 85018; 85025; 86850; C9803; J2405; U0003; U0005

== ENCOUNTER 2021-10-25 11:16 | Emergency (ER) | payer OTHER, SELFPAY ==
[2021-10-25 12:00] VITALS: BP 102/62; PULSE 79; RESP 19; TEMP 36.7; O2SAT 98; BMI 22.8
--- NOTE | 2021-10-25 12:19 | HMH.EDUTC ---
[facility] [place] Disposition Clinical Impression: Sinus infection Qualifiers: Sinusitis location: unspecified location Chronicity: unspecified Qualified Code(s): J32.9 - Chronic sinusitis, unspecified Disposition: Home, Self-Care Condition on Discharge: Good Instructions: Sinusitis, DI for Sinusitis Additional Instructions: *Monitor Temp, Over the counter Motrin or Tylenol as directed/as needed Tylenol every 4 hours and Motrin every 6 hours (as long as your family doctor has told you that you can take it) for fever or pain. and straight to ER if unable to lower temp less than 101.0 after medication given *Warm salt water gargles may help to soothe the throat *Throat Lozenges *Warm fluids like tea with honey may help to soothe the throat *Sleep elevated *Humidifier/Vaporizer *Flonase 2 sprays in each nostril daily but be aware that it may take 2-3 days before you notice improvement Take medication as prescribed Follow up IMMEDIATELY for new or worsening symptoms or no Noticeable improvement over the next 48-72 hours. 911 for difficulty breathing or swallowing Prescriptions: methylPREDNISolone [Medrol 4mg tab] 4 mg PO DIRECTED #21 tab Transmission Status: Pending to [facility] # Azithromycin [Z-Nicholas 250mg Tab] 250 mg PO DIRECTED #6 tab Transmission Status: Pending to [facility] # Referrals: [place] MD [Primary Care Provider] - As needed Time of Disposition: 12:31 Medical Decision Making - Vega Inquiry Pt receiving controlled substance: No Vega was queried for this patient: No Vital Signs: 10/25/21 12:00 Temperature 98.0 F Temperature Source Oral Pulse Rate [Right Brachial] 79 Respiratory Rate 19 Blood Pressure [Right Arm] 102/62 L Blood Pressure Mean [Right Arm] 75 Blood Pressure Source [Right Arm] Automatic Cuff Blood Pressure Position [Right Arm] Sitting 02 Sat by Pulse Oximetry 98 Oxygen Delivery Method Room Air [facility] [place] HPI - General Stated complaint: head pressure, bilateral ear pain Time Seen by Provider: 10/25/21 12:19 Mode of Arrival: Ambulatory Source of Information: Patient Limitations: No Limitations Description of Symptoms (Recalled from Triage Doc. by RN): PATIENT C/O RUNNY NOSE AND SINUS PRESSURE X 1 WEEK HEENT Symptoms (Recalled from RN notes): Yes Resp Symptoms (Recalled from RN notes): No Skin Symptoms (Recalled from RN notes): No MS Symptoms (Recalled from RN notes): No Functional Status (Recalled from RN notes): WNL - History of Present Illness Provider Complaint: Patient states that she has been having sinus pain and pressure and feeling pressure in both ears States that she feels like she has a sinus infection States that it has been going on for about a week but not got any better so she came in - Related Data Previous Rx's Medication Instructions Recorded Azithromycin [Z-Nicholas 250mg Tab] 250 mg PO DIRECTED #6 tab 10/25/21 methylPREDNISolone [Medrol 4mg 4 mg PO DIRECTED #21 tab 10/25/21 tab] Allergies Allergy/AdvReac Type Severity Reaction Status Date / Time Sulfa (Sulfonamide Allergy Mild Verified 09/23/21 11:10 Antibiotics) [SULFA (SULFONAMIDE ANTIBIOTICS)] - Worker's Comp Is this a Worker's Comp case?: No [facility] History - Hepatitis A Screen Drug use history?: No High risk sexual behaviors?: No History of sexually transmitted infection?: No Currently employed?: No Childcare worker?: No Do you have indoor plumbing?: Yes Do you have electricity?: Yes Attestation statement:: This patient has been screened for Hepatitis A risk factors. I have reviewed the patient's past medical history: Yes Medical History: Reports:: Anxiety Denies:: Cancer, Diabetes Mellitus Type 1, Diabetes Mellitus Type 2, MRSA, Seizures Other Medical History: Reports: Anemia, Sinus Problems. Denies: Blood Transfusion Reaction Other Surgeries: Yes: No Previous Surgery, Amputation: No Fractur
[2021-10-25 12:36] VITALS: BP 102/62; PULSE 79; RESP 19; TEMP 36.7; O2SAT 98
== END 2021-10-25 12:54 | disposition home or self-care (01) ==
PROVIDERS: Emergency Provider Nurse Practitioner; PCP Pediatrics
DX: J32.9 Chronic sinusitis, unspecified (principal); F41.9 Anxiety disorder, unspecified; F17.210 Nicotine dependence, cigarettes, uncomplicated
CPT/HCPCS: 99212; G0463

== ENCOUNTER → 2022-02-14 12:03 | Outpatient (CLI) | payer OTHER, SELFPAY ==
[2022-02-14 13:58] LABS: HCG,Quantitative < 2 mIU/ml (0-5.42)
== END ==
PROVIDERS: PCP Pediatrics; Visit Provider Nurse Practitioner Obstetrics & Gynecology
DX: Z34.90 Encounter for supervision of normal pregnancy, unspecified, unspecified trimester (principal)
CPT/HCPCS: 36415; 84702

== ENCOUNTER 2022-02-16 18:25 | Emergency (ER) | payer OTHER, SELFPAY ==
[2022-02-16 18:30] VITALS: BP 131/86; PULSE 76; RESP 18; TEMP 36.6; O2SAT 100; BMI 23.2
--- NOTE | 2022-02-16 18:51 | HMH.EDUTC ---
[facility] Disposition Clinical Impression: Negative test Disposition: Home, Self-Care Condition on Discharge: Good Additional Instructions: If you do not start your period in the next couple of weeks follow up with OBGYN Return if needed Straight to ER if any life threatening symptoms Referrals: [place] [Primary Care Provider] - As needed Time of Disposition: 19:01 Medical Decision Making - Vega Inquiry Pt receiving controlled substance: No Vega was queried for this patient: No Vital Signs: 02/16/22 18:30 Temperature 97.9 F Temperature Source Oral Pulse Rate [Left Brachial] 76 Respiratory Rate 18 Blood Pressure [Left Arm] 131/86 Blood Pressure Mean [Left Arm] 101 Blood Pressure Source [Left Arm] Automatic Cuff Blood Pressure Position [Left Arm] Sitting 02 Sat by Pulse Oximetry 100 Oxygen Delivery Method Room Air - Lab Data Lab results reviewed: Yes: I reviewed the patient's lab results. Lab Results 02/16/22 18:40: Serum HCG, Qual Negative Orders (Tests/Meds): ORDERS Category Date Time Status HCG,Quantitative Stat Lab 02/16/22 18:40 Received [facility] HPI - General Stated complaint: wanting blood work Time Seen by Provider: 02/16/22 18:51 Mode of Arrival: Ambulatory Source of Information: Patient Limitations: No Limitations Description of Symptoms (Recalled from Triage Doc. by RN): PATIENT REQUESTING BLOOD TEST HEENT Symptoms (Recalled from RN notes): No Resp Symptoms (Recalled from RN notes): No Skin Symptoms (Recalled from RN notes): No MS Symptoms (Recalled from RN notes): No Functional Status (Recalled from RN notes): WNL - History of Present Illness Provider Complaint: Patient requesting blood test State that she has taken several home pregancy test and some have been negative and some have been positive State that she has been feeling tired like she has with previous and today she took 2 and one was positive and one negative so she came in to get blood test to see what it shows - Related Data Previous Rx's Medication Instructions Recorded Azithromycin [Z-Nicholas 250mg Tab] 250 mg PO DIRECTED #6 tab 10/25/21 methylPREDNISolone [Medrol 4mg 4 mg PO DIRECTED #21 tab 10/25/21 tab] norgestimate 0.25 mg-ethinyl 1 tab PO DAILY #28 tab 02/10/22 estradiol 35 mcg tablet Allergies Allergy/AdvReac Type Severity Reaction Status Date / Time Sulfa (Sulfonamide Allergy Mild Verified 09/23/21 11:10 Antibiotics) [SULFA (SULFONAMIDE ANTIBIOTICS)] - Worker's Comp Is this a Worker's Comp case?: No [facility] History - Hepatitis A Screen Attestation statement:: This patient has been screened for Hepatitis A risk factors. I have reviewed the patient's past medical history: Yes Medical History: Reports:: Anxiety Denies:: Cancer, Diabetes Mellitus Type 1, Diabetes Mellitus Type 2, MRSA, Seizures Other Medical History: Reports: Anemia, Sinus Problems. Denies: Blood Transfusion Reaction Other Surgeries: Yes: No Previous Surgery, Amputation: No Fractures: No Comment: wisdom teeth, cone biopsy/ECC - Social History Smoking Status: Current every day smoker Tobacco Type: cigarettes # Packs/Day (cigarettes): 1 #Yrs smoked (if former smoker): 5 Alcohol Intake: never Alcohol Intake Frequency:: other Substance Use Type: denies use Occupational Status: employed Housing: apartment Household Members: children - Psychiatric History Pschychiatric History:: Reports:: Anxiety Family Hx:: Hypertension, Diabetes ROS Obtained: Yes All systems reviewed & no additional complaints, Yes Systems reviewed as appropriate & no additional complaints - Constitutional Constitutional: Reports system reviewed and no additional complaints, except as docu - ENT Ears, Nose, Mouth, and Throat: Reports system reviewed and no additional complaints, except as docu - Cardiovascular Cardiovascular: Reports system r
[2022-02-16 18:56] LABS: HCG Qualitative, Serum Negative (Negative)
[2022-02-16 19:02] VITALS: BP 131/86; PULSE 76; RESP 18; TEMP 36.6; O2SAT 100
[2022-02-16 19:16] LABS: HCG,Quantitative < 2 mIU/ml (0-5.42)
== END 2022-02-16 19:04 | disposition home or self-care (01) ==
PROVIDERS: Emergency Provider Nurse Practitioner; PCP Pediatrics
DX: Z32.02 Encounter for pregnancy test, result negative (principal)
CPT/HCPCS: 84702; 84703; 99212; G0463

== ENCOUNTER → 2022-02-25 13:36 | Outpatient (CLI) | payer OTHER, SELFPAY ==
[2022-02-25 14:17] LABS: HCG Qualitative, Serum Negative (Negative)
== END ==
PROVIDERS: PCP Pediatrics; Visit Provider Nurse Practitioner Obstetrics & Gynecology
DX: Z34.90 Encounter for supervision of normal pregnancy, unspecified, unspecified trimester (principal)
CPT/HCPCS: 36415; 84703

== ENCOUNTER 2023-01-04 16:47 | Emergency (ER) | payer OTHER, SELFPAY ==
[2023-01-04 16:56] VITALS: BP 118/62; PULSE 74; RESP 20; TEMP 36.7; O2SAT 96; BMI 21.7
[2023-01-04 17:00] VITALS: BP 127/69; PULSE 70; O2SAT 98
[2023-01-04 17:30] VITALS: BP 117/64; PULSE 64; O2SAT 99
--- NOTE | 2023-01-04 17:33 | HMH.EDGENADL ---
Discharge Plan Disposition Patient Disposition: Home, Self-Care Prescriptions Prescriptions: New ondansetron 4 mg tablet,disintegrating 4 mg PO Q6H PRN (Reason: nausea and vomiting) 5 Days Qty: 20 0RF No Action norgestimate-ethinyl estradiol [Sprintec (28)] 0.25-35 mg-mcg tablet 1 tab PO DAILY Qty: 28 11RF azithromycin 250 MG tablet 250 mg PO DIRECTED Qty: 6 0RF Rx Instructions: Take two (2) tablets on day #1, then one (1) tablet day #2 thru #5 methylprednisolone 4 MG tablet 4 mg PO DIRECTED Qty: 21 0RF Rx Instructions: Take as directed on package instructions Referrals Follow up/Referrals: [place] [Primary Care Provider] - See instructions Clinical Impressions Clinical Impression: Bloody diarrhea, Nausea & vomiting Instructions Patient Instructions: DI for Acute Abdominal Pain Discharge ED Provider: Tom Baez General Adult HPI General Chief complaint: Abdominal Pain Stated complaint: vomiting blood, diarrhea Time Seen by Provider: 01/04/23 17:33 Mode of Arrival: Ambulatory Source of Information: Patient Limitations: No Limitations Description of Symptoms (Recalled from ER Triage Doc. by RN): pt to ed c/o n/v/d x3 days. pt states her children were dx with norovirus. pt reports abd cramping. History of Present Illness HPI narrative: Patient is a 27-year-old female whose children were recently diagnosed with confirmed norovirus presenting with nausea vomiting and diarrhea with bloody stool. She denies any fevers she does have some abdominal cramping and some mild discomfort but she states it just feels like she has used the bathroom just from a constant standpoint. She has been unable to tolerate anything by mouth and is worried about getting dehydrated. Related Data Previous Rx's Medication Instructions Recorded azithromycin 250 mg tablet 250 mg PO DIRECTED #6 tabs 10/25/21 methylprednisolone 4 mg tablet 4 mg PO DIRECTED #21 tabs 10/25/21 norgestimate 0.25 mg-ethinyl 1 tab PO DAILY #28 tabs 02/10/22 estradiol 35 mcg tablet (Sprintec (28)) ondansetron 4 mg disintegrating 4 mg PO Q6H PRN nausea and 01/04/23 tablet vomiting 5 days #20 tabs Allergies Allergy/AdvReac Type Severity Reaction Status Date / Time Sulfa (Sulfonamide Allergy Mild Verified 09/23/21 11:10 Antibiotics) [SULFA (SULFONAMIDE ANTIBIOTICS)] [facility] Disclaimer: The information contained in this section may have been updated after the patient was seen, as this information can be updated by other users. Social History Smoking Status: Never smoker second hand exposure: No alcohol intake: never substance use type: denies use current occupational status: employed Travel in the last 8 weeks: None household members: children housing: apartment ROS Obtained: Yes All systems reviewed & no additional complaints except as documented Physical Exam General General appearance: alert Respiratory Respiratory exam: Present normal lung sounds bilaterally Cardiovascular Cardiovascular exam: Present regular rate; Absent tachycardia Neurological Exam Neurological exam: Present alert and oriented X3 Medical Decision Making Vega Inquiry Pt receiving controlled substance: No Vital Signs: 01/04/23 16:56 01/04/23 17:00 01/04/23 17:30 Temperature 98.1 F Temperature Source Oral Pulse Rate 70 64 Pulse Rate [Left Radial] 74 Respiratory Rate 20 Blood Pressure 127/69 117/64 Blood Pressure [Right Arm] 118/62 Blood Pressure Mean [Right Arm] 80 02 Sat by Pulse Oximetry 96 98 99 Oxygen Delivery Method Room Air Room Air Room Air Lab Data Lab results reviewed: Yes I reviewed the patient's lab results. Lab Results 01/04/23 17:54: WBC 18.0 H, RBC 4.86, Hgb 14.8, Hct 45.7, MCV 94.0, MCH 30.5, MCHC 32.5, RDW 12.9, Plt Count 304, MPV 7.7, Neut % (Auto) 81.0 H, Lymph % (Auto) 8.8 L, [place] % (Auto) 8.8, Eos % (Auto) 1.1, Baso %
[2023-01-04 18:11] LABS: Basophils # 0.1 K/mm3 (0-0.2); Basophils % 0.3 % (0.1-2.0); Eosinophils # 0.2 K/mm3 (0.0-0.4); Eosinophils % 1.1 % (0.1-12.0); Hematocrit 45.7 % (37.0-47.0); Hemoglobin 14.8 g/dL (12.2-16.2); Lymphocytes # 1.6 K/mm3 (0.7-4.5); Lymphocytes % 8.8 % (10-50); Mean Corpuscular HGB Conc 32.5 g/dL (31.8-35.4); Mean Corpuscular Hemoglobin 30.5 pg (27.0-31.2); Mean Platelet Volume 7.7 fl (7.4-10.4); Monocytes # 1.6 K/mm3 (0.1-1.0); Monocytes % 8.8 % (1.7-9.3); Neutrophils # 14.6 K/mm3 (1.8-7.8); Platelet Count 304 K/mm3 (142-424); Red Blood Count 4.86 M/mm3 (4.20-5.40); Red Cell Distribution Width 12.9 % (11.5-17.5)
[2023-01-04 18:12] LABS: Chloride 99 mmol/L (98-107); Potassium 3.3 mmoL/L (3.5-5.1); Sodium 136 mmol/L (136-145)
[2023-01-04 18:14] LABS: Alanine Aminotransferase 22 U/L (12-78); Aspartate Amino Transferase 18 U/L (14-36); Blood Urea Nitrogen 6 mg/dl (7-17); Creatinine Clearance Estimated 162 mL/min (50-200); Estimated Glomerular Filt Rate 147 ml/min (>60); GFR (African American) 178 ML/MIN (>60)
[2023-01-04 18:15] LABS: Albumin Level 3.6 g/dl (3.5-5.0); Albumin/Globulin Ratio 1.3 (1.1-1.8); Alkaline Phosphatase 68 U/L (38-126); Anion Gap 13.3 mEq/L (5-15); Bilirubin,Total 0.4 mg/dl (0.2-1.3); Calcium 8.8 mg/dl (8.4-10.2); Carbon Dioxide 27 mmol/L (22.0-30.0); Globulin 2.7 g/dL (1.3-3.2); Glucose 114 mg/dl (74-100); MANUAL DIFFERENTIAL MANUAL DIFFERENTIAL (MANUAL DIFF); Magnesium 1.6 mg/dl (1.6-2.3); Phosphorous 3.7 mg/dl (2.5-4.5); Total Protein,Serum 6.3 g/dl (6.3-8.2)
[2023-01-04 18:49] LABS: Lymphocytes % 11 % (10-50); Monocytes % 5 % (2-9); Neutrophils % 84 % (42-76); Platelet Estimate Normal; RBC Morphology Normal; Total Cells Counted 100
[2023-01-04 19:30] VITALS: BP 113/65; PULSE 76; RESP 16; TEMP 36.7; O2SAT 98
== END 2023-01-04 19:40 | disposition home or self-care (01) ==
PROVIDERS: Emergency Provider Student in an Organized Health Care Education/Training Program; PCP Pediatrics
DX: K92.1 Melena (principal); R19.7 Diarrhea, unspecified; R11.2 Nausea with vomiting, unspecified
CPT/HCPCS: 80053; 83735; 84100; 85007; 85025; 96361; 96374; 96375; 99284; 99285; J2405